=== PATIENT | male | born 1940 | race Caucasian/White ===

== ENCOUNTER 2020-07-05 13:34 | Inpatient (IN) | payer OTHER ==
[~2020-07-05] VITALS: Ht 188 cm; Wt 99.1 kg
[2020-07-05 13:34] VITALS: BP 158/65
[2020-07-05] MEDS ORDERED: BENADRYL25 MG PO (13:36)
[2020-07-05] MEDS ORDERED: PEPCID20 MG PO (13:37)
[2020-07-05] MEDS ORDERED: TERAZOSIN HCL5 MG PO (13:37)
[2020-07-05] MEDS ORDERED: EUTHYROX100 MCG PO (13:37)
[2020-07-05 14:39] LABS: BASOPHILS 1.3 % (0.0-2.0); HEMATOCRIT 27.1 % (42.0-52.0); HEMOGLOBIN 9.8 gm/dL (14.0-18.0); LYMPHOCYTES 3.2 % (24.0-44.0); MCH 30.9 pg (26.0-34.0); MCHC 36.2 g/dL (28.0-37.0); MCV 85.4 fL (80.0-100.0); MONOCYTES 3.1 % (1.0-8.0); PLATELET COUNT 140 thou/uL (150-400); POLYS 92.4 % (36.0-66.0); RBC 3.17 mil/uL (4.50-6.00); RDW 18.2 % (10.5-14.5); WBC 7.5 thou/uL (4.0-11.0)
[2020-07-05 14:47] LABS: CALCIUM 8.1 mg/dL (8.5-10.1); CREATININE 1.1 mg/dL (0.7-1.3); POTASSIUM 3.9 mmol/L (3.5-5.1)
[2020-07-05 14:51] LABS: PLATELET ESTIMATE SLIGHTLY DECREASED
[2020-07-05 14:53] LABS: ALBUMIN 3.1 g/dL (3.4-5.0); TOTAL BILIRUBIN 1.7 mg/dL (0.2-1.0); TOTAL PROTEIN 6.9 g/dL (6.4-8.2)
[2020-07-05 14:58] LABS: LARGE PLATELETS RARE
[2020-07-05 14:59] LABS: ANISOCYTOSIS 1+
[2020-07-05 15:23] LABS: URINE BILIRUBIN NEGATIVE (Negative); URINE BLOOD TRACE (Negative); URINE CLARITY CLEAR; URINE COLOR YELLOW; URINE GLUCOSE-RANDOM* NEGATIVE (Negative); URINE KETONES NEGATIVE (Negative); URINE LEUKOCYTES-REFLEX NEGATIVE (Negative); URINE NITRITE-REFLEX NEGATIVE (Negative); URINE PROTEIN (DIPSTICK) 1+ (Negative); URINE SPECIFIC GRAVITY 1.025 (1.005-1.035)
[2020-07-05 15:41] LABS: BACTERIA-REFLEX 1-9 Few /HPF (None Seen); CASTS None Seen /LPF (None Seen); CRYSTALS None Seen /LPF (None Seen); URINE RBC 0-2 Rare /HPF (0-2); URINE WBC-REFLEX None Seen /HPF (0-5)
[2020-07-05 15:42] LABS: SQUAMOUS None Seen /LPF (0-3)
[2020-07-05 15:48] LABS: BE(vivo) 0.1 mmol/L (-2 to +3); HCO3 21.9 mmol/L (22.0-26.0); PCO2 28.1 mmHg (35.0-45.0); PO2 60.6 mmHg (80.0-100.0); sO2 93.7 % (92.0-98.0)
--- NOTE | 2020-07-05 15:48 | EKG ---
[facility] [place] [address] ELECTROCARDIOGRAM REPORT Name: MIMI BRIDGES Room #: REG [facility]#: [id number] Admission: 07/05/20 Attend Phys: Discharge: Date of : 38 Report #: [id number] THIS REPORT FOR: cc: Shakeel Hopkins MD, Kirk D. 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: no : 1940 Requested By: Lucero Richardson Order Number: [id number] MD: Lai Bassett Measurements Intervals [place] Rate: 102 P: 19 SD: 176 QRS: -38 QRSD: 107 T: 41 QT: 346 QTc: 451 Interpretive Statements Sinus tachycardia Probable left atrial enlargement Left axis deviation Probable anteroseptal infarct, old Baseline wander in lead(s) V1 No previous ECG available for comparison Electronically Signed On 07-05-2020 15:47:55 COMMUNITY OUTREACH ADVOCATE by Lai Bassett [email or web address] <ELECTRONICALLY SIGNED> By: Lai Bassett MD, FACC 07/05/20 1547 [id number] [id number] Lai Bassett MD, FACC /EPI
--- NOTE | 2020-07-05 18:34 | NUR ---
WITH PT'S PERMISSION, ETIQUETTE TEACHER SPOKE DAUGHTER IN-LAW MING BRIDGES, UPDATE ON POC GIVEN. NUMBER- [phone], .
[2020-07-06 05:47] LABS: HEMATOCRIT 25.5 % (42.0-52.0); HEMOGLOBIN 9.2 gm/dL (14.0-18.0); MCH 30.8 pg (26.0-34.0); MCV 85.6 fL (80.0-100.0); RBC 2.98 mil/uL (4.50-6.00); RDW 18.1 % (10.5-14.5); WBC 3.6 thou/uL (4.0-11.0)
[2020-07-06 06:10] LABS: CALCIUM 8.1 mg/dL (8.5-10.1); POTASSIUM 3.8 mmol/L (3.5-5.1)
[2020-07-06 06:44] VITALS: BP 108/69
[2020-07-06 08:52] LABS: ALBUMIN 2.8 g/dL (3.4-5.0); DIRECT BILIRUBIN 0.3 mg/dL (<0.1-0.2); TOTAL BILIRUBIN 0.9 mg/dL (0.2-1.0); TOTAL PROTEIN 6.5 g/dL (6.4-8.2)
[2020-07-06 09:17] VITALS: BP 125/57; BP 129/60
[2020-07-06 15:06] VITALS: BP 120/53
--- NOTE | 2020-07-06 16:04 | NUR ---
assumed care of pt at 0700. pt aox4 in no acute distress. soa w/ activity. otherwise voicing no complaints. very pleasant. up w/ sba. convalescent plasma transfused per. vitals normal. maintains spo2 on 3L NC. calls out appropriately. wcn.
[2020-07-06 21:22] VITALS: BP 121/60
[2020-07-07 04:13] VITALS: BP 115/43
[2020-07-07 06:02] LABS: ABSOLUTE NEUTROPHILS 8.5 thou/uL (1.4-8.2); BASOPHILS 0.3 % (0.0-2.0); HEMATOCRIT 24.8 % (42.0-52.0); HEMOGLOBIN 8.7 gm/dL (14.0-18.0); MCH 30.4 pg (26.0-34.0); MCHC 35.1 g/dL (28.0-37.0); MCV 86.4 fL (80.0-100.0); MONOCYTES 3.1 % (1.0-8.0); PLATELET COUNT 147 thou/uL (150-400); POLYS 95.6 % (36.0-66.0); RBC 2.87 mil/uL (4.50-6.00); RDW 17.4 % (10.5-14.5); WBC 8.8 thou/uL (4.0-11.0)
[2020-07-07 06:08] LABS: FIBRINOGEN 380.4 mg/dL (210-360); INR 1.1; PROTIME 11.3 Seconds (9.3-11.4)
--- NOTE | 2020-07-07 06:32 | NUR ---
POC WITH IVF/IVPB INFUSING. O2 AT 3L. PT WOKE UP IN A PANIC, FEARING HE COULD NOT BREATH. REINSERTED NC AND HAD PT TAKE DEEP BREATHS. 02 BACK UP INTO 90'S. PT USES CALL LIGHT APPROPRIATELY. PT UP WITH X1 ASSIST, AND OVERNIGHT USES URINAL.
[2020-07-07 06:52] LABS: ALBUMIN 2.6 g/dL (3.4-5.0); CREATININE 0.9 mg/dL (0.7-1.3); DIRECT BILIRUBIN 0.3 mg/dL (<0.1-0.2); PHOSPHORUS 2.6 mg/dL (2.5-4.9); POTASSIUM 3.8 mmol/L (3.5-5.1); TOTAL BILIRUBIN 0.8 mg/dL (0.2-1.0); TOTAL PROTEIN 6.1 g/dL (6.4-8.2)
[2020-07-07 07:41] VITALS: BP 219/62
[2020-07-07 07:53] VITALS: BP 117/53
[2020-07-07 11:43] VITALS: BP 124/54
--- NOTE | 2020-07-07 15:50 | NUR ---
PT CARE ASSUMED AT 0700, PT ALERT AND ORIENTED X4, FORGETFUL AND CONFUSED AT TIMES. PT DENIES ANY PAIN NAUSEA AND VOMITTING. PT IS ON BIPAP AND SEEMS AGITATED AT TIMES. CURRENTLY ON PRECEDEX 0.7MCG/HG/HR. PT HAS A BILATERAL WRIST SOFT RESTRAINTS DUE TO PULLING HER BUENO CATHETER OUT AND HER BIPAP. ASSESSMENT DONE PER PROTOCOL. NEW BUENO CARTHETER PLACE, PATENT AND SECURED. PT DAUGHTER IN LAW CALLED AND WAS UPDATED ABOUT PT CARE. FALL PRECAUTIONS IN PLACE. WILL CONTINUE TO MONITOR.
[2020-07-07 16:02] VITALS: BP 135/62
--- NOTE | 2020-07-07 16:11 | NUR ---
INITIAL ASSESSMENT: ARTIS reviewed chart and spoke with nursing and attending physician. Pt remains in Enhanced Isolation due to COVID-19. Pt is afebrile and on 3L of O2. Pt is on IV abx, IV steroids and completing course of Remdesivir. ARTIS placed call to pt's room multiple times. No answer. Per chart, pt is alert/orientated x 4. Pt lives at home alone. 2 steps to enter and 2 steps inside. Prior to admission, pt was independent with ADLs and does not use any DME. Therapy has been ordered and is working with pt for recommendations for discharge needs. ARTIS will continue to reach pt via phone. ARTIS is following to assist as needed with discharge planning.
--- NOTE | 2020-07-07 18:39 | NUR ---
ASSUMED CARE OF PT AT 0700. PT AOX4 MOD RESP DISTRESS. INCREASED O2 NEEDS THROUGHOUT THE DAY. VERY ANXIOUS. NOT TOLERATING BIPAP. PULM AWARE. NOW ON OPTIFLO. PENDING TRANSFER TO ICU. MAINTAINING SPO2 ON 50L/55% AT THIS TIME. WCM.
--- NOTE | 2020-07-07 20:26 | NUR ---
CONSULTED TO PLACE A PICC FOR A PATIENT TRANSFERING TO ICU. ORDER AND CONSENT NOTED. THE PROCEDURE WELL BENIFITS AND RISKS WERE DISCUSSED WITH THE PATIENT AND HE VERBALIZED UNDERSTANDING. HE WAS UNABLE TO LAY FLAT FOR A CENTRAL LINE SO A 5F TRIPLE LUMEN POWER PICC WAS PLACED IN THE RIGHT UPPER ARM. LINE WAS TRIMMED TO 42 CM AND ADVANCED WITHOUT DIFFICULTY. A THE END OF PLACEMENT THE PATIENT BECAME VERY RESTLESS. A STAT CHEST XRAY WAS ORDERED TO VERIFY PLACEMENT
[2020-07-07 20:51] VITALS: BP 209/77
[2020-07-07 20:56] LABS: BE(vivo) -0.8 mmol/L (-2 to +3); HCO3 22.2 mmol/L (22.0-26.0); PCO2 32.3 mmHg (35.0-45.0); PO2 61.8 mmHg (80.0-100.0); pH 7.455 (7.360-7.450)
[2020-07-08] VITALS (36 sets, daily range): BP systolic 92–201; BP diastolic 49–97
--- NOTE | 2020-07-08 02:14 | NUR ---
PT ANXIETY LEVEL VERY HIGH AGAIN AND DESATING. RT INTERVENTIONS RAISED 02 90%. PT TRANSFER ORDER TO ICU AND REPORT GIVEN ICU NURSE.
--- NOTE | 2020-07-08 02:20 | NUR ---
79 Y/O PT OF DR NEVES ADMITTED TO ICU FROM [facility] WITH INCREASING OXYGEN NEEDS ON 100 % OPTIFLOW/. COVID POSITIVE O2 SAT 90 % AWAKE AND ALERT NEURO INTACT. PT EXTREMELY ANXIOUS ABND NERVOUS. ASKED IF HE WANTED TO BE PLACED ON THE VENT IF NEEDED AND HE STATES YES. WILL CONT TO MONITOR.
--- NOTE | 2020-07-08 05:00 | NUR ---
PT VERY AGITATED AND HAVING DYSPNEA. HALDOL 1 MG IV GIVEN PER ORDER WIRELINE FIELD OPERATOR PT IS VOIDING IN SMALL AMTS. #16 FR BUENO PLACED.CLEAR JABARI URINE OBTAINED.
--- NOTE | 2020-07-08 06:30 | NUR ---
PT VERY RESTLESS AND AGITATED AGAIN O2 SAT 86 % PRECEDEX GTT STARTED PER ORDER DR HAJI. WILL CONT TO MONITOR.
[2020-07-08 06:36] LABS: ABSOLUTE NEUTROPHILS 10.1 thou/uL (1.4-8.2); BASOPHILS 0.3 % (0.0-2.0); HEMATOCRIT 33.2 % (42.0-52.0); LYMPHOCYTES 1.7 % (24.0-44.0); MCH 30.3 pg (26.0-34.0); MCHC 35.4 g/dL (28.0-37.0); MCV 85.8 fL (80.0-100.0); MONOCYTES 2.6 % (1.0-8.0); PLATELET COUNT 193 thou/uL (150-400); POLYS 95.4 % (36.0-66.0); RBC 3.87 mil/uL (4.50-6.00); RDW 18.2 % (10.5-14.5); WBC 10.5 thou/uL (4.0-11.0)
[2020-07-08 06:37] LABS: HEMOGLOBIN 11.8 gm/dL (14.0-18.0)
[2020-07-08 06:59] LABS: ALBUMIN 2.8 g/dL (3.4-5.0); DIRECT BILIRUBIN 0.3 mg/dL (<0.1-0.2); FIBRINOGEN 372.7 mg/dL (210-360); INR 1.2; PROTIME 12.1 Seconds (9.3-11.4); TOTAL BILIRUBIN 1.1 mg/dL (0.2-1.0); TOTAL PROTEIN 6.4 g/dL (6.4-8.2)
--- NOTE | 2020-07-08 07:00 | NUR ---
PT IS RESTING QUIETLY NOW. PRECEDEX AT 0.5 MCG O2 SAT 95 % WILL CONT TO MONITOR
--- NOTE | 2020-07-08 07:18 | NUR ---
PATIENT WITH INCREASING RESPIRATORY NEEDS, TRANSFER FROM 3W TO ICU. PATIENT PLACED ON HOLD FOR O.T. WILL NEED NEW ORDERS WHEN APPROPRIATE FOR THERAPY.
--- NOTE | 2020-07-08 08:04 | NUR ---
Pt TRANSFERRED TO ICU. WILL PLACE ON HOLD AND AWAIT NEW ORDERS TO RESUME WHEN APPROPRIATE
--- NOTE | 2020-07-08 08:10 | NUR ---
Assummed care on patient from night nurse. Patient desasts into the lower 80's with pulling up in bed and anxious. Resp rate in the 40's, monitor ST.
[2020-07-08 08:23] LABS: ALBUMIN 2.8 g/dL (3.4-5.0); CALCIUM 7.8 mg/dL (8.5-10.1); CREATININE 0.8 mg/dL (0.7-1.3); POTASSIUM 3.3 mmol/L (3.5-5.1); TOTAL BILIRUBIN 1.1 mg/dL (0.2-1.0); TOTAL PROTEIN 6.6 g/dL (6.4-8.2)
[2020-07-08 10:27] LABS: BE(vivo) -2.7 mmol/L (-2 to +3); HCO3 21.4 mmol/L (22.0-26.0); pH 7.404 (7.360-7.450)
[2020-07-08 10:28] LABS: PO2 51.5 mmHg (80.0-100.0)
--- NOTE | 2020-07-08 10:30 | NUR ---
PATIENT IS ANXIOUS AND DESATING INTO THE 70'S WHEN ACCIDENTLY DISLODGING OPTIFLOW DEVICE FROM ONE OF HIS NOSTRILS. DR. HAJI NOTIFIED. ALSO INFORMED OF HIS LABS. ORDERS RECEIVED
--- NOTE | 2020-07-08 12:00 | NUR ---
PATIENT GIVEN LASIX PER ORDER. SPOKE WITH FAMILY MEMBERS SON AND DAUGHTER VIA PHONE. PATIENT INTUBATED AT [address] HAJI AT BEDSIDE, SEDATION GIVEN PER PROTOCOL FOR INTUBATION. PROPOFOL DRIP STARTED AND TITRATED FOR SEDATION. OG TUBE INSERTED AND STAT PCLR DONE PER ORDER.
--- NOTE | 2020-07-08 12:02 | NUR ---
If pt requires intubation, start enteral nutrition within 48 hr. Rec vital AF 1.2 to start 30ml/hr. will follow up saturday.
[2020-07-08 13:42] LABS: CALCIUM 7.2 mg/dL (8.5-10.1); CREATININE 0.9 mg/dL (0.7-1.3); POTASSIUM 3.3 mmol/L (3.5-5.1)
--- NOTE | 2020-07-08 13:42 | NUR ---
chart review, unable to visit with caleb rt chloeid +, conserve on ppe. cm spoke with office ahsu morin via phone call. ashu had question if she would be able to talk with him"?ashu. cm education on face time with caleb, if ask nurse to do so while in room with caleb. "thank you for the call, not being able to visit with mayelin"/officer mikel. will cont following as needed for dc needs.
[2020-07-08 14:01] LABS: HCO3 23.7 mmol/L (22.0-26.0); PCO2 44.6 mmHg (35.0-45.0); PO2 164.6 mmHg (80.0-100.0); pH 7.343 (7.360-7.450)
[2020-07-09] VITALS (31 sets, daily range): BP systolic 109–142; BP diastolic 54–72
--- NOTE | 2020-07-09 04:31 | NUR ---
PT REMAINS SEDATED WITH PRECEDEX AND PROPOFOL DRIPS FOR VENT MANAGEMENT. BILATERAL WRIST RESTRAINTS REMAIN IN PLACE PT ATTEMPTS TO MOVE HIS ARMS TOWARD HIS ETT WHEN HE COUGHS OR IS SUCTIONED. VSS. AFEBRILE. TOLERATING VENT WELL. FIO2 TITRATED DOWN TO 60%. GOOD URINE OUTPUT FROM BUENO. COMPLETE BED BATH GIVEN DURING THE NIGHT. PROGRESSING SLOWLY TOWARD POC GOALS. WILL CONTINUE TO MONITOR AND GIVE REPORT TO ONCOMING NURSE.
[2020-07-09 04:33] LABS: BE(vivo) 1.1 mmol/L (-2 to +3); PCO2 48.6 mmHg (35.0-45.0); PO2 90.3 mmHg (80.0-100.0); pH 7.362 (7.360-7.450); sO2 96.6 % (92.0-98.0)
[2020-07-09 05:06] LABS: HEMATOCRIT 25.8 % (42.0-52.0); MCH 29.9 pg (26.0-34.0); MCHC 34.2 g/dL (28.0-37.0); MCV 87.4 fL (80.0-100.0); RBC 2.95 mil/uL (4.50-6.00); RDW 18.3 % (10.5-14.5); WBC 5.3 thou/uL (4.0-11.0)
[2020-07-09 05:09] LABS: HEMOGLOBIN 8.8 gm/dL (14.0-18.0)
[2020-07-09 05:20] LABS: ALBUMIN 2.3 g/dL (3.4-5.0); CALCIUM 7.1 mg/dL (8.5-10.1); CREATININE 0.9 mg/dL (0.7-1.3); DIRECT BILIRUBIN 0.5 mg/dL (<0.1-0.2); PHOSPHORUS 3.8 mg/dL (2.5-4.9); TOTAL BILIRUBIN 0.9 mg/dL (0.2-1.0); TOTAL PROTEIN 5.5 g/dL (6.4-8.2)
--- NOTE | 2020-07-09 07:22 | NUR ---
SPOKE WITH PT'S [id number]. UPDATED PROVIDED AND QUESTIONS ANSWERED.
--- NOTE | 2020-07-09 08:00 | NUR ---
ASSUMMED CARE FROM THE NIGHT NURSE, RAOUL AT 0700. PATIENT IS RESTING QUIETLY, SEDATED ON VENT.
--- NOTE | 2020-07-09 10:30 | NUR ---
SPOKE WITH PATIENT'S DAUGHTER, PREM AND UPDATED HER TO THE PATIENT'S STATUS. WILL ARRANGE FOR A CALL AT NOON ON PATIENT'S OWN PHONE.
--- NOTE | 2020-07-09 12:55 | NUR ---
DR NEVES AND DR HAJI IN. NUTRITION DISCUSSED.
--- NOTE | 2020-07-09 17:03 | NUR ---
SPOKE WITH DAUGHTER PREM AT 1640 AND UPDATED HER TO THE PATIENT STATUS.
--- NOTE | 2020-07-09 19:17 | NUR ---
Patient is stable, sedation continues for vent management.
[2020-07-10] VITALS (25 sets, daily range): BP systolic 112–156; BP diastolic 46–69
--- NOTE | 2020-07-10 04:24 | NUR ---
PT REMAINS ON THE VENT. COVID POSITIVE. ON SEDATION. OXYGEN SATURATION IS MAINTAINING AT 99-100 PERCENT ON THE VENT. TEMPERATURE WAS COOL SO WARMING BLANKET USED AND NOW WARM SO TAKEN OFF. LUNGS ARE DIMINISHED. SUCTIONED MINIMAL CLEAR FLUIDS NOTED. SCDS ON BILAERATL. VITAL ARE STABLE. TURN Q [address] NO ISSUES OR CONCERNS NOTED AT THIS TIME. WILL CONTINUE TO MONITOR AND ASSESS PER NURSINTG
[2020-07-10 05:30] LABS: HEMATOCRIT 26.6 % (42.0-52.0); MCH 30.1 pg (26.0-34.0); MCHC 33.9 g/dL (28.0-37.0); MCV 88.9 fL (80.0-100.0); RBC 2.99 mil/uL (4.50-6.00); WBC 5.9 thou/uL (4.0-11.0)
[2020-07-10 05:55] LABS: CALCIUM 7.7 mg/dL (8.5-10.1); CREATININE 0.9 mg/dL (0.7-1.3); POTASSIUM 4.6 mmol/L (3.5-5.1)
[2020-07-10 05:57] LABS: ALBUMIN 2.4 g/dL (3.4-5.0); DIRECT BILIRUBIN 0.4 mg/dL (<0.1-0.2); TOTAL BILIRUBIN 0.9 mg/dL (0.2-1.0); TOTAL PROTEIN 5.7 g/dL (6.4-8.2)
--- NOTE | 2020-07-10 10:33 | NUR ---
ASSUMMED CARE AT 0700 FROM THE NIGHT NURSE TERRENCE. PATIENT IS SEDATED WITH PROPOFOL AND PRECEDEX. FI02 DECREASED TO 40%. WILL CONTINUE TO MONITOR
--- NOTE | 2020-07-10 11:30 | NUR ---
SPOKE WITH PATIENT'S SON REGINA, UPDATED HIM ON THE PATIENT'S CONDITION.
--- NOTE | 2020-07-10 17:30 | NUR ---
SPOKE WITH PREM, AND UPDATED HER ON HER FATHER'S CONDITION.
--- NOTE | 2020-07-10 19:00 | NUR ---
PATIENT IS SLOWLY PROGRESSING TOWARDS OUTCOME GOALS HE IS TOLERATING HIW TUBE FEEDING. REMAINS SEDATED ON VENT WITH SAT'S IN THE UPPER 90'S.
[2020-07-11] VITALS (25 sets, daily range): BP systolic 97–137; BP diastolic 47–70
[2020-07-11 05:27] LABS: HEMATOCRIT 26.1 % (42.0-52.0); MCHC 34.4 g/dL (28.0-37.0); MCV 87.1 fL (80.0-100.0); RBC 2.99 mil/uL (4.50-6.00); RDW 18.1 % (10.5-14.5)
[2020-07-11 05:39] LABS: ALBUMIN 2.4 g/dL (3.4-5.0); CALCIUM 8.1 mg/dL (8.5-10.1); CREATININE 0.8 mg/dL (0.7-1.3); POTASSIUM 4.4 mmol/L (3.5-5.1); TOTAL BILIRUBIN 0.9 mg/dL (0.2-1.0); TOTAL PROTEIN 5.4 g/dL (6.4-8.2)
--- NOTE | 2020-07-11 07:27 | NUR ---
ON PRECEDEX AND PROPOFOL GTT.TOLERATING TUBE FEEDING.MONITOR SHOWS SR.POC CONTINUED.
[2020-07-11 09:14] LABS: BE(vivo) 5.4 mmol/L (-2 to +3); HCO3 31.9 mmol/L (22.0-26.0); PCO2 57.4 mmHg (35.0-45.0); PO2 95.9 mmHg (80.0-100.0); pH 7.363 (7.360-7.450); sO2 96.9 % (92.0-98.0)
--- NOTE | 2020-07-11 15:43 | NUR ---
ON THE VENT AND LIGHTLY SEDATED, GETS RESTLESS WITH SEDATION VACATION. VITALS STABLE. TUBEFEEDING PER OGT CHANGED PER DIETITIAN RECOMMENDATION AND PATIENT TOLERATING WELL. DAUGHTER CALLED RN AND UPDATED, DR. NEVES ROUNDED AND STATED HE WOULD CALL SON WITH ANY FURTHER UPDATES. WILL CONTINUE TO MONITOR CLOSELY.
--- NOTE | 2020-07-11 20:38 | NUR ---
2034- NURSE CALLED PATIENTS MARICARMEN RAMIREZ, [place], WHO PROVIDED PATIENTS SECURITY CODE. NURSE UPDATED HER ON PATIENTS CURRENT STATUS AND PLAN OF CARE. SHE EXPRESSED GRATITUDE AND THE CALL WAS ENDED.
--- NOTE | 2020-07-11 20:45 | NUR ---
2044- Nurse talked to MOISES Robb, and his was on the phone with him, and updated them on patient status and plan of care. Their questions were answered. Patients son expressed that Aaliyah is not on patients [facility] paperwork and would like her name removed from list. He expressed he wants his Millie to be added to the call list. Nurse will assess this and update this when paperwork obtained.
[2020-07-12] VITALS (24 sets, daily range): BP systolic 106–163; BP diastolic 47–103
[2020-07-12 05:31] LABS: HEMATOCRIT 27.9 % (42.0-52.0); HEMOGLOBIN 9.5 gm/dL (14.0-18.0); MCH 30.1 pg (26.0-34.0); MCHC 34.1 g/dL (28.0-37.0); MCV 88.2 fL (80.0-100.0); RBC 3.17 mil/uL (4.50-6.00); RDW 18.3 % (10.5-14.5); WBC 8.4 thou/uL (4.0-11.0)
[2020-07-12 05:46] LABS: CALCIUM 8.1 mg/dL (8.5-10.1); CREATININE 0.7 mg/dL (0.7-1.3)
[2020-07-12 05:50] LABS: ALBUMIN 2.3 g/dL (3.4-5.0); DIRECT BILIRUBIN 0.3 mg/dL (<0.1-0.2); TOTAL BILIRUBIN 0.8 mg/dL (0.2-1.0); TOTAL PROTEIN 5.4 g/dL (6.4-8.2)
--- NOTE | 2020-07-12 07:42 | NUR ---
Patient not progressing towards plan of care as evidenced by continued need for ventilator, becomes tachypneic with lightened sedation, strong gag and cough. Plan of care is to continue to assess patient q2-4 hours, vital signs q1 hour, discuss with physician weaning trials, decrease sedation as able, increase tube feeding as able.
--- NOTE | 2020-07-12 11:41 | NUR ---
SON CALLING TO GET AN UPDATE ON PATIENT. UPDATE GIVEN, SON ASKING AVOUT OBTAINING KEYS FROM FATHER. RN EXPLAINING UNLESS THERES DOCCUMENTED DPOA PAPER WORK KEYS WILL NOT BE ABLE TO BE RELEASED. SON EXPRESSING UNDERSTANDING.
--- NOTE | 2020-07-12 17:19 | NUR ---
chart review. caleb cont to require vent, and nutritional support. COVID +. cm left message for [place]. will cont following as needed for dc needs.
[2020-07-13] VITALS (24 sets, daily range): BP systolic 91–162; BP diastolic 42–70
[2020-07-13 04:29] LABS: BE(vivo) 7.1 mmol/L (-2 to +3); HCO3 34.2 mmol/L (22.0-26.0); PCO2 64.3 mmHg (35.0-45.0); PO2 92.6 mmHg (80.0-100.0); pH 7.344 (7.360-7.450); sO2 96.4 % (92.0-98.0)
--- NOTE | 2020-07-13 04:51 | NUR ---
Patient not progressing towards plan of care, however is stable at this time. His ABG showed elevated CO2, however stable. Patient remains on 40% FIO2. Bowel sounds hypoactive, no bowel movement noted, residuals are low and patient appears to be tolerating tube feeding. Plan of care is to continue to monitor patient vital signs q1hour, assessments q2-4 hours, oral care q2 hours, and provide customized care for his needs.
[2020-07-13 05:26] LABS: ALBUMIN 2.1 g/dL (3.4-5.0); CALCIUM 8.1 mg/dL (8.5-10.1); CREATININE 0.6 mg/dL (0.7-1.3); DIRECT BILIRUBIN 0.3 mg/dL (<0.1-0.2); PHOSPHORUS 3.5 mg/dL (2.5-4.9); POTASSIUM 4.8 mmol/L (3.5-5.1); TOTAL BILIRUBIN 0.6 mg/dL (0.2-1.0); TOTAL PROTEIN 5.4 g/dL (6.4-8.2)
--- NOTE | 2020-07-13 06:48 | NUR ---
0648- Preeti, patients daughter, called up here this morning, however nurse was in patient room. Nurse did return her call to update her on patient night, however voicemail picked up. No voicemail was left as nurse is unsure if permission to do so was granted.
--- NOTE | 2020-07-13 07:34 | NUR ---
[address] RETURNED CALL TO NURSE. HER QUESTIONS WERE ANSWERED AND SHE WAS UPDATED ON PATIENTS STATUS AND PLAN OF CARE. SHE ASKED IF SHE COULD HAND PATCHER PATIENTS KEYS AND HIS PHONE BECAUSE THE PATIENT HAS BUISNESS AND MAIL THAT NEEDS ATTENDING TO. NURSE EXPRESSED SHE WOULD ASK IF THIS WAS POSSIBLE AND SEE IF KEYS WERE IN PATIENTS ROOM, THEN HAVE ONCOMING NURSE CALL HER BACK. THIS WAS INFORMED TO THE ONCOMING RN FOR CONTINUATION OF CARE.
--- NOTE | 2020-07-13 19:56 | NUR ---
PATIENT CONTINUES ON VENTILATOR A/C 40% PROPOFOL AND PRECEDEX FOR VENTILATOR MANAGEMENT. NO CPAP TRIALING.
[2020-07-14] VITALS (26 sets, daily range): BP systolic 102–167; BP diastolic 47–71
[2020-07-14 06:04] LABS: ALBUMIN 2.1 g/dL (3.4-5.0); CALCIUM 8.1 mg/dL (8.5-10.1); CREATININE 0.7 mg/dL (0.7-1.3); POTASSIUM 4.5 mmol/L (3.5-5.1); TOTAL PROTEIN 5.4 g/dL (6.4-8.2)
--- NOTE | 2020-07-14 06:23 | NUR ---
PT MAINTAINED ON VENTILATOR OVERNIGHT. VITALS STABLE. SEDATED. RESPONDS TO PAINFUL STIMULI. NO EVENTS OVERNIGHT. VENT AT AC 40%. O2 SATs > 95 THROUGHOUT THE NIGHT. WILL CONTINUE WITH POC.
--- NOTE | 2020-07-14 19:12 | NUR ---
PATIENT DOES NOT PROGRESS TOWARDS DISMISSAL GOALS. CPAP TRIAL ATTEMPTED TODAY. PATIENT DID NOT TOLERATE. INCREASED HR AND RR. PATIENT CONTINUES ON A/C 40% VENTILATOR. PROPOFL AND PRECEDEX CONTINUE. PATIENT KEYS, PHONE AND BANKING SERVICES OFFICER WERE SENT WITH DAUGHTER PREM.
[2020-07-15] VITALS (20 sets, daily range): BP systolic 108–152; BP diastolic 45–65
[2020-07-15 03:38] LABS: BE(vivo) 9.1 mmol/L (-2 to +3); HCO3 34.5 mmol/L (22.0-26.0); PCO2 51.9 mmHg (35.0-45.0); PO2 86.9 mmHg (80.0-100.0); sO2 96.7 % (92.0-98.0)
[2020-07-15 05:36] LABS: HEMOGLOBIN 8.6 gm/dL (14.0-18.0); RDW 18.5 % (10.5-14.5)
[2020-07-15 05:38] LABS: HEMATOCRIT 24.9 % (42.0-52.0); MCH 29.9 pg (26.0-34.0); MCHC 34.4 g/dL (28.0-37.0); MCV 86.8 fL (80.0-100.0); PLATELET COUNT 91 thou/uL (150-400); RBC 2.87 mil/uL (4.50-6.00); WBC 7.1 thou/uL (4.0-11.0)
[2020-07-15 06:10] LABS: ALBUMIN 2.1 g/dL (3.4-5.0); CALCIUM 7.9 mg/dL (8.5-10.1); CREATININE 0.6 mg/dL (0.7-1.3); POTASSIUM 4.3 mmol/L (3.5-5.1); TOTAL BILIRUBIN 0.8 mg/dL (0.2-1.0); TOTAL PROTEIN 5.3 g/dL (6.4-8.2)
[2020-07-15 06:20] LABS: DIRECT BILIRUBIN 0.4 mg/dL (<0.1-0.2); PHOSPHORUS 3.3 mg/dL (2.5-4.9)
--- NOTE | 2020-07-15 06:50 | NUR ---
PATIENT HAD A GOOD NIGHT LAST NIGHT. PATIENT'S VSS. PATIENT TURNED Q2H AND SLEPT WELL LAST NIGHT. PATIENT GIVEN A BATH THIS MORNING. NO S/S OF DISTRESS NOTED.
[2020-07-15 10:05] LABS: ABSOLUTE NEUTROPHILS 6.1 thou/uL (1.4-8.2); ANISOCYTOSIS 1+; METAMYELOCYTES 2 %; MYELOCYTES 1 %; NUCLEATED RBCS 1 /100WBC
[2020-07-15 10:06] LABS: LARGE PLATELETS OCCASIONAL; POIKILOCYTOSIS SLIGHT; POLYCHROMASIA SLIGHT
[2020-07-15 10:46] LABS: ABSOLUTE RETIC COUNT 0.1596 10^6/uL; OBSERVED RETIC COUNT 5.64 % (0.6-2.6)
[2020-07-15 11:07] LABS: APTT 29.1 Seconds (24.5-32.8); D-DIMER 0.68 ug/mLFEU (0.19-0.50); INR 1.1; PROTIME 11.1 Seconds (9.3-11.4)
--- NOTE | 2020-07-15 14:48 | NUR ---
chart review. remains on vent, nutritional support. covid +. cm visit with ashu his daughter via phone call [phone], no needs voiced. will cont following as needed for dc needs.
[2020-07-15 15:39] LABS: BE(vivo) 11.7 mmol/L (-2 to +3); HCO3 37.6 mmol/L (22.0-26.0); PCO2 57.7 mmHg (35.0-45.0); PO2 86.3 mmHg (80.0-100.0); pH 7.432 (7.360-7.450); sO2 96.6 % (92.0-98.0)
[2020-07-16] VITALS (23 sets, daily range): BP systolic 114–179; BP diastolic 53–92
--- NOTE | 2020-07-16 03:31 | NUR ---
ASSESSMENTS CHARTED, MEDS CHARTED GIVEN. PATIENT ON VENTILATOR, SEDATED. ON PROPOFOL AND PRESEDEX DURING SHIFT. BATH GIVEN. PLAN OF CARE TO TRY CPAP TRIAL AGAIN TODAY. FALL PRECAUTIONS IN PLACE.
--- NOTE | 2020-07-16 13:48 | NUR ---
TRIED WEANING THE PATIENT ON 01/28 AT 1250 THIS AFTERNOON. HE DIDN'T NOT MAKE IT TO THE 5 MINUTE JEAN, HE LASTED 1 MIN 45 SECONDS AND HIS RR INCREASED INTO THE LOW 40'S. THE TRIAL WAS ENDED AND PATIENT WAS PLACED BACK ON HIS PREVIOUS VENT SETTINGS.
[2020-07-17] VITALS (27 sets, daily range): BP systolic 70–145; BP diastolic 41–71
[2020-07-17 04:19] LABS: BE(vivo) 11.7 mmol/L (-2 to +3); HCO3 38.2 mmol/L (22.0-26.0); PO2 83.6 mmHg (80.0-100.0); pH 7.429 (7.360-7.450); sO2 96.2 % (92.0-98.0)
[2020-07-17 05:32] LABS: WBC 13.1 thou/uL (4.0-11.0)
[2020-07-17 05:35] LABS: ABSOLUTE NEUTROPHILS 11.4 thou/uL (1.4-8.2); BASOPHILS 0.7 % (0.0-2.0); EOSINOPHILS 2.8 % (0.0-3.0); HEMOGLOBIN 9.8 gm/dL (14.0-18.0); LYMPHOCYTES 5.1 % (24.0-44.0); MCHC 34.9 g/dL (28.0-37.0); MCV 85.9 fL (80.0-100.0); MONOCYTES 4.5 % (1.0-8.0); PLATELET COUNT 102 thou/uL (150-400); POLYS 86.9 % (36.0-66.0); RBC 3.26 mil/uL (4.50-6.00); RDW 19.8 % (10.5-14.5)
[2020-07-17 05:57] LABS: ALBUMIN 2.4 g/dL (3.4-5.0); CALCIUM 8.6 mg/dL (8.5-10.1); CREATININE 0.8 mg/dL (0.7-1.3); POTASSIUM 4.6 mmol/L (3.5-5.1); TOTAL BILIRUBIN 1.1 mg/dL (0.2-1.0); TOTAL PROTEIN 5.9 g/dL (6.4-8.2)
--- NOTE | 2020-07-17 07:14 | NUR ---
ASSESSMENTS CHARTED, MEDS CHARTED GIVEN. ON PRECEDEX AND PROPOFOL DURING SHIFT. VENT SETTINGS WERE NOT CHANGED DURING SHIFT. PATIENT IN RESTRAINTS DURING SHIFT. PATIENT PUTTING OUT COPIOUS SUCRETIONS, NEEDING FREQUENT SUCTIONING. HAD EPISODE OF AGONAL BREATHING, DIAPHORETIC. FILTER CHANGED IN VENTILATOR,SUCTIONED AND REPOSITIONED AND PATIENT RECOVERED. FALL PRECAUTIONS IN PLACE DURING SHIFT. NO APPARENT PAIN
[2020-07-17 12:38] LABS: ANISOCYTOSIS 2+
[2020-07-17 12:40] LABS: POLYCHROMASIA SLIGHT
[2020-07-17 12:41] LABS: MICROCYTES 2+
[2020-07-18] VITALS (29 sets, daily range): BP systolic 82–141; BP diastolic 41–70
--- NOTE | 2020-07-18 03:30 | NUR ---
ASSUMED CARE OF PATIENT AT 1900. VSS, NO S/S OF DISTRESS. PROPOFOL AND PRECEDEX INFUSING CHARTED. VENT SETTING REMAIN THE SAME. BATH GIVEN, TURNED Q2. WORKING TOWARDS POC GOALS.
[2020-07-18 03:49] LABS: HEMATOCRIT 32.5 % (42.0-52.0); HEMOGLOBIN 11.2 gm/dL (14.0-18.0); MCH 29.5 pg (26.0-34.0); MCHC 34.4 g/dL (28.0-37.0); MCV 85.7 fL (80.0-100.0); PLATELET COUNT 127 thou/uL (150-400); RBC 3.79 mil/uL (4.50-6.00); RDW 20.1 % (10.5-14.5); WBC 22.4 thou/uL (4.0-11.0)
[2020-07-18 04:03] LABS: ALBUMIN 2.6 g/dL (3.4-5.0); CALCIUM 8.6 mg/dL (8.5-10.1); CREATININE 0.7 mg/dL (0.7-1.3); POTASSIUM 4.4 mmol/L (3.5-5.1); TOTAL BILIRUBIN 1.3 mg/dL (0.2-1.0); TOTAL PROTEIN 6.2 g/dL (6.4-8.2)
[2020-07-18 05:13] LABS: ABSOLUTE NEUTROPHILS 19.3 thou/uL (1.4-8.2); METAMYELOCYTES 2 %; MYELOCYTES 2 %
[2020-07-18 05:14] LABS: ANISOCYTOSIS 2+
[2020-07-18 05:23] LABS: BE(vivo) 14.4 mmol/L (-2 to +3); HCO3 40.5 mmol/L (22.0-26.0); PCO2 57.2 mmHg (35.0-45.0); PO2 107.7 mmHg (80.0-100.0); pH 7.468 (7.360-7.450); sO2 98.1 % (92.0-98.0)
--- NOTE | 2020-07-18 13:08 | NUR ---
chart review. remains on vent, nutritional support. bedside nurse provides updates to pt family. will cont following as needed for dc needs.
[2020-07-19] VITALS (59 sets, daily range): BP systolic 86–169; BP diastolic 48–85
[2020-07-19 03:08] LABS: HEMATOCRIT 28.4 % (42.0-52.0); HEMOGLOBIN 9.7 gm/dL (14.0-18.0); MCH 29.2 pg (26.0-34.0); MCV 85.9 fL (80.0-100.0); RBC 3.3 mil/uL (4.50-6.00); RDW 20.5 % (10.5-14.5); WBC 19.5 thou/uL (4.0-11.0)
[2020-07-19 03:11] LABS: CALCIUM 8.8 mg/dL (8.5-10.1); CREATININE 0.7 mg/dL (0.7-1.3); POTASSIUM 4.5 mmol/L (3.5-5.1)
--- NOTE | 2020-07-19 03:55 | NUR ---
ASSESSMENTS CHARTED, MEDS CHARTED GIVEN. PATIENT SEDATED AND INTUBATED THROUGHOUT SHIFT. SR WITH PAC'S AND PVC'S ON TELEMETRY. ON TUBE FEED, NO RESIDUALS. WATER BOLUS'S WITH BENEPROTEIN Q6. PATIENT IN PROTECTIVE BOOTS DURING SHIFT. TURNED CHARTED. FALL PRECAUTIONS IN PLACE DURING SHIFT.
--- NOTE | 2020-07-19 13:01 | NUR ---
SPOKE W/ SON, MIMI, ON TELEPHONE. UPDATE GIVEN REQUESTED. MIMI VERBALIZES CONCERN ABOUT ADVANCED DIRECTIVE DOCUMENTATION THAT WE MAY HAVE ON FILE. REASSURANCES PROVIDED THAT WE WILL FOLLOW UP ON THAT. EMOTIONAL SUPPORT PROVIDED.
[2020-07-19 15:44] LABS: BE(vivo) 8.9 mmol/L (-2 to +3); HCO3 34.6 mmol/L (22.0-26.0); PCO2 52.9 mmHg (35.0-45.0); PO2 99.7 mmHg (80.0-100.0); pH 7.434 (7.360-7.450); sO2 97.6 % (92.0-98.0)
--- NOTE | 2020-07-19 18:05 | NUR ---
@ APPX 9900, PT'S SON, REGINA, CONTACTED AND PROVIDED W/ UPDATE ON PT CONDITION S/P EXTUBATION. FACETIME WITH PT PROVIDED FOR BOTH REGINA AND PREM, PT'S GROWN CHILDREN. REASSURANCES AND EMOTIONAL SUPPORT PROVIDED.
--- NOTE | 2020-07-19 18:40 | NUR ---
PT EXTUBATED TODAY TO FACE TENT. PT DROWSY BUT APPROPRIATELY RESPONSIVE TO QUESTIONS AND VERBALIZES THAT HE WANTS TO GO HOME. PT/OT/ST CONSULTED. PT'S SON, REGINA, AND DAUGHTER, PREM WOULD LIKE TO FACETIME ONCE A DAY WITH THEIR DAD WHILE HE IS IN ISOLATION. PROGRESSING TOWARD GOALS.
[2020-07-20 01:01] VITALS: BP 171/79
[2020-07-20 01:59] VITALS: BP 153/79
--- NOTE | 2020-07-20 03:37 | NUR ---
ASSESSMENTS CHARTED, MEDS CHARTED GIVEN. PATIENT HAD RECENTLY BEEN EXTUBATED AND SATING WELL ON FACE SHIELD. CHANGED TO NC AT 4 LITERS. PATIENT ALERT TO SELF AND SITUATION, SOME CONFUSION AND VISUAL HALLUCINATIONS (SPIDERS AND DOGS IN THE ROOM).SINUS RHYTHM WITH PVC'S AND ONE RUN OF VTACH. PATIENT NPO FOR SPEECH EVALUATION. OT AND PT ARE ALSO CONSULTED. PATIENT CONTINUES TO HAVE A LOW GRADE FEVER. PATIENT GLAD HE IS NO LONGER INTUBATED. DENIES PAIN. FALL PRECAUTIONS IN PLACE. REPORT WAS GIVEN TO 3W NURSE, PATIENT WAS TRANSFERED TO A 3W BED AND SENT UPSTAIRS WITH HIS NEW NURSE.
--- NOTE | 2020-07-20 03:57 | NUR ---
TELEPHONE REPORT FROM VANESSA IN ICU AT 0255; PT TRANSFERRED BY BED AT 0320. 4L O2, ON TELE, DROWSY BUT TALKING. BUENO IN PLACE DRAINING DARK URINE. WILL CONTINUE TO MONITOR
[2020-07-20 04:34] VITALS: BP 147/79
[2020-07-20 06:31] LABS: CALCIUM 8.8 mg/dL (8.5-10.1); CREATININE 0.7 mg/dL (0.7-1.3); POTASSIUM 3.6 mmol/L (3.5-5.1)
[2020-07-20 07:52] VITALS: BP 161/76
[2020-07-20 12:00] VITALS: BP 157/71
--- NOTE | 2020-07-20 13:46 | NUR ---
ARTIS reviewed chart and spoke with nursing and attending physician. Pt was transferred to from ICU after being successfully extubated yesterday. Pt remains in Enhanced Isolation due to COVID-19. Pt is s/p convalescent plasma infusion and course of Remdesivir. Pt is afebrile and on 4L of O2 via NC. Pt is on IV abx and IV steroids. PT/OT/ST ordered to evaluate pt. ARTIS discussed case with frozen foods manager for possible admission to when out of isolation and medically stable. N consult to be ordered. ARTIS placed call to pt's room. No answer. ARTIS spoke with pt's dtr, Preeti, via phone. Introduced role of ARTIS. Pt normally lives at home alone. Prior to admission, pt was independent with ADLs. No hx of HH services or post-acute placement. Pt's dtr states that he did outpatient therapy after a knee surgery. Pt's PCP was Dr. Shakeel Hopkins, who recently . Pt's dtr is agreeable with post-acute placement or home with HH. ARTIS explained that referrals will be sent to in-network providers. Pt's dtr thought pt had traditional Medicare. ARTIS explained that pt has a Medicare replacement policy through [facility]. No weekend discharge anticipated at this time. Will need insurance authorization for acute rehab if pt is a candidate. Pt's dtr provided with contact info for . Pt's family was able to Face Time with pt last evening prior to transferring to . ARTIS is following to assist as needed with discharge planning.
[2020-07-20 19:33] VITALS: BP 148/72
[2020-07-21 03:04] VITALS: BP 160/62
[2020-07-21 06:09] LABS: CALCIUM 8.5 mg/dL (8.5-10.1); CREATININE 0.7 mg/dL (0.7-1.3); POTASSIUM 3.5 mmol/L (3.5-5.1)
[2020-07-21 07:33] VITALS: BP 158/74
[2020-07-21 10:41] LABS: BE(vivo) -2.5 mmol/L (-2 to +3); HCO3 19.9 mmol/L (22.0-26.0); PCO2 27.4 mmHg (35.0-45.0); PO2 84.5 mmHg (80.0-100.0); sO2 97.1 % (92.0-98.0)
[2020-07-21 11:51] VITALS: BP 152/81
--- NOTE | 2020-07-21 12:39 | NUR ---
CARE ASSUMED AT 0700, ALER AND OIRENTED X1, DISORIENTED TO PLACE, TIME AND SITUATION. PLEASANTLY CONFUSED. DENIES ANY PAIN, NAUSEA AND VMOTTING. PT CONTINUE TO BE ON 4L OF OXYGEN, SOB WITH EXERTION. PT IS ON BEDREST. SON CALLED AND FACETIME WITH PT. WILL CONTINUE TO TITRATE OXYGEN DOWN. FALL PRECAUTIONS IN PLACE. WILL CONTINUE TO MONITOR.
[2020-07-21 15:10] VITALS: BP 155/69
[2020-07-21 21:13] VITALS: BP 177/78
[2020-07-22 04:27] VITALS: BP 165/81
--- NOTE | 2020-07-22 04:47 | NUR ---
PT LYING IN BED. DENIES PAIN. RESTING COMFORTABLY. NO NEEDS VOICED. CALL LIGHT WITHIN REACH. FREQUENT OBSERVATION.
[2020-07-22 07:36] VITALS: BP 160/80
[2020-07-22 11:20] VITALS: BP 148/74
[2020-07-22 15:32] VITALS: BP 145/76
--- NOTE | 2020-07-22 17:49 | NUR ---
ASSUMED PATIENT CARE AT 0700. PATIENT ON COMFORT CARE HAS MORPHINE GTT ON. NOTED PATIENT PASS AWAY AT 1700. DR FAGAN AND QUINTON NOTIFIED.
--- NOTE | 2020-07-22 19:06 | NUR ---
ASSUMED PATIENT CARE AT 0700. ALERT TO SELF. SR/ST ON MONITOR. POOR APPATITE. TOLERATED ON 2-3 L 02. Q2H TURN. ASSISTED FACETIME WITH FAMILY. SLOWLY TOWARDS POC GOALS.
[2020-07-22 20:35] VITALS: BP 141/73
[2020-07-23 03:50] VITALS: BP 129/75
--- NOTE | 2020-07-23 04:57 | NUR ---
Pt. has been awake most of the night watching TV then did not start sleeping till around 0400. Maintaining O2 sat in the upper 90's on 2L/NC. He has loose cough. Repositioned for comfort. Max temp 99.6 orally this shift.
[2020-07-23 07:15] VITALS: BP 107/70
--- NOTE | 2020-07-23 07:22 | NUR ---
Pt.'s HR in the 150's this am. Dr. Sun notified , EGG obtained per order and stated he is on the way to see pt. Report given to day RN.
[2020-07-23 08:38] LABS: HEMATOCRIT 29.2 % (42.0-52.0); HEMOGLOBIN 9.9 gm/dL (14.0-18.0); MCH 29.8 pg (26.0-34.0); MCHC 33.8 g/dL (28.0-37.0); MCV 88.2 fL (80.0-100.0); RBC 3.31 mil/uL (4.50-6.00); RDW 23.1 % (10.5-14.5); WBC 20.5 thou/uL (4.0-11.0)
[2020-07-23 08:45] LABS: CREATININE 0.9 mg/dL (0.7-1.3); POTASSIUM 3.1 mmol/L (3.5-5.1)
[2020-07-23 11:20] LABS: MAGNESIUM 2.2 mg/dL (1.8-2.4)
[2020-07-23 11:30] VITALS: BP 122/68
[2020-07-23 15:27] VITALS: BP 129/83
--- NOTE | 2020-07-23 19:40 | NUR ---
RN ASSUMED PT'S CARE AT 0700AM, PT KNOWS HIS NAME , PT CAN FLOOW SOME COMMANDS, BUT PT IS CONFUSED AT TIME, PT NEEDS HELP MEALS AND CHANGE POSITION, RN HAS CALLED DR TO REPORT PT'S HR 130-150, EKG SHOWED SVT, ABNORMAL LAB RESULTS, PT STARTS IV FLUIDS AND POTTASIUM REPLACEMENT. PT'S HR HAS IMPROVED,
[2020-07-23 19:58] VITALS: BP 131/78
[2020-07-24 02:04] LABS: HEMATOCRIT 26.2 % (42.0-52.0); HEMOGLOBIN 8.8 gm/dL (14.0-18.0); MCH 29.8 pg (26.0-34.0); MCHC 33.7 g/dL (28.0-37.0); MCV 88.4 fL (80.0-100.0); RBC 2.97 mil/uL (4.50-6.00); RDW 22.3 % (10.5-14.5); WBC 21.3 thou/uL (4.0-11.0)
[2020-07-24 02:14] LABS: CALCIUM 8.5 mg/dL (8.5-10.1); CREATININE 0.9 mg/dL (0.7-1.3); POTASSIUM 3.2 mmol/L (3.5-5.1)
[2020-07-24 02:32] VITALS: BP 123/78
--- NOTE | 2020-07-24 02:45 | NUR ---
KEEPING O2 SATS 97% ON 2.5 LITERS, CONTINUES ON IV FLUIDS. BLOOD PRESSURE WNL'S. AFEBRILE. HEART RATE IS 130 CONSISTANTLY. SPOE WITH PROVIDER AND RECIEVED ORDER FOR HALDOL 1 MG IV, ONE TIME NOW. POTASSIUM LEVEL IS LOW THIS AM, IV SUPPLEMENT BEING INFUSED AT THIS TIME.
--- NOTE | 2020-07-24 03:33 | NUR ---
GAVE ONE TIME DOSE OF HALDOL 1 MG. THIS HAS SLIGHTLY TAKEN THE EDGE OFF HIS CONSTANT MOVEMENT AND FIDGETING. EKG COMPLETED, INDICATED SINUS TACHCARDIA, ASYMPTOMATIC. HEART RATE CONTINUES IN THE 130'S.
[2020-07-24 08:18] VITALS: BP 132/70
--- NOTE | 2020-07-24 10:25 | EKG ---
[facility] [place] [place] [address] ELECTROCARDIOGRAM REPORT Name: MIMI BRIDGES Room #: 360-P ADM IN M.R.#: [id number] Admission: 07/05/20 Attend Phys: Noble Sun MD Discharge: Date of : 38 Report #: [id number] THIS REPORT FOR: cc: Shakeel Hopkins MD, Kirk D. MD Lammoglia, Francisco J. MD ~ THIS REPORT FOR: //name// [facility] Test Date: 2020-07-24 Test Time: 03:17:43 Pat Name: MIMI BRIDGES Department: Room: 360 P Gender: M Podiatric Technician: NURSE : 1940 Requested By: Millie Horton Order Number: [id number] MD: Bart Michael Measurements Intervals [place] Rate: 130 P: 0 OK: 113 QRS: -43 QRSD: 97 T: 101 QT: 319 QTc: 469 Interpretive Statements Sinus tachycardia Left anterior fascicular block Nonspecific ST-T wave change Baseline wander in lead(s) V4 Compared to ECG 07/23/2020 07:11:20 Atrial tachycardia/flutter no longer present Electronically Signed On 07-24-2020 10:25:14 PLATFORM LOADER by Bart Michael [email or web address] <ELECTRONICALLY SIGNED> By: Bart Michael MD 07/24/20 1025 6 6 Bart Michael MD /EPI
--- NOTE | 2020-07-24 10:28 | EKG ---
[facility] [place] [address] [place] [address] ELECTROCARDIOGRAM REPORT Name: MIMI BRIDGES Room #: 360-P ADM IN M.R.#: [id number] Admission: 07/05/20 Attend Phys: Noble Sun MD Discharge: Date of : 38 Report #: [id number] THIS REPORT FOR: cc: Shakeel Hopkins MD, Kirk D. MD Lammoglia, Francisco J. MD ~ THIS REPORT FOR: //name// [facility] Test Date: 2020-07-23 Test Time: 07:11:20 Pat Name: MIMI BRIDGES Department: Room: 360 P Gender: M Operations Manager/Coordinator: [facility] : 1940 Requested By: Noble Sun Order Number: [id number] MD: Bart Michael Measurements Intervals [place] Rate: 150 P: 86 VA: 86 QRS: -55 QRSD: 97 T: 127 QT: 343 QTc: 542 Interpretive Statements Atrial tachycardia consider 2-1 block/flutter Ventricular premature complex Left anterior fascicular block LVH voltage criteria present leads I and aVL Compared to ECG 07/05/2020 14:17:17 Sinus tachycardia no longer present Electronically Signed On 07-24-2020 10:27:59 CARTOGRAPHY/MAPPING TECHNICIAN by Bart Michael [email or web address] <ELECTRONICALLY SIGNED> By: Bart Michael MD 07/24/20 1027 0 0 Bart Michael MD /EPI
[2020-07-24 11:40] VITALS: BP 134/81
[2020-07-24 15:31] VITALS: BP 130/64
--- NOTE | 2020-07-24 20:09 | NUR ---
RN ASSUMED PT'S CARE AT 0700AM , PT IS A&OX1 ( PERSON), PT CAN FOLLOW SOME COMMANDS, PT IS CONFUSED, PT EATS POOR AT MEAL TIME , PT IS CONTINUING IV FLUID D5@ 125ML/HR, PT IS ON O2 2L/MIN/NC, PT'S VS ARE STABLE AT DAY SHIFT.
[2020-07-24 20:10] VITALS: BP 130/67
[2020-07-25 00:25] VITALS: BP 117/62
[2020-07-25 05:05] VITALS: BP 119/63
--- NOTE | 2020-07-25 07:24 | NUR ---
Pt. has been awake most of the night. Still confused and oriented to person only. Frequent reorientation done. He has been repositioned for comfort. Cont. on enhanced precaution ,afebrile.Pt. had episode of tachycardia in the 140's, IT SECURITY ARCHITECT notified and order received. Metoprolol 2.5 mg IV given that brought HR down in the low 100's to 110's. Albumin x 1 dose also given. Maintaining O2 sat in the mid 90's . Tirado had 525 ml of urine. Kcl IV given for low K level per protocol.
[2020-07-25 07:25] LABS: HEMATOCRIT 22.1 % (42.0-52.0); HEMOGLOBIN 7.4 gm/dL (14.0-18.0); MCH 29.7 pg (26.0-34.0); MCHC 33.5 g/dL (28.0-37.0); MCV 88.7 fL (80.0-100.0); RBC 2.49 mil/uL (4.50-6.00); RDW 22.8 % (10.5-14.5); WBC 24.9 thou/uL (4.0-11.0)
[2020-07-25 07:38] LABS: CALCIUM 7.9 mg/dL (8.5-10.1); CREATININE 0.9 mg/dL (0.7-1.3); POTASSIUM 3.4 mmol/L (3.5-5.1)
--- NOTE | 2020-07-25 08:21 | NUR ---
PATIENT SEEN FOR REHAB CONSULT BY SANDIE LOPEZ NP WITH DR. SEGURA, ON JUL 22. PATIENT IS A POSSIBLE CANDIDATE FOR ACUTE REHAB. AT THIS TIME WILL CONTINUE TO FOLLOW. WILL SEEK AUTH FROM INSURANCE WHEN PATIENT IS MEDICALLY STABLE, NO LONGER IN ISOLATION AND HAS INCREASED TOLERANCE FOR THERAPY. THANK YOU FOR THIS REFERRAL.
[2020-07-25 08:30] VITALS: BP 111/69
[2020-07-25 11:38] VITALS: BP 126/48
[2020-07-25 11:43] LABS: % SATURATION 34 % (20-39); IRON 40 ug/dL (65-175); TIBC 118 ug/dL (250-450)
[2020-07-25 12:15] LABS: FOLIC ACID 15.6 ng/mL (8.6-58.9)
--- NOTE | 2020-07-25 15:33 | NUR ---
ARTIS reviewed chart and spoke with nursing and attending physician. Pt remains in Enhanced Isolation due to COVID-19. Pt is afebrile and on 2L of O2. 5N consulted and is following for possible admission to inpt acute rehab. Therapy to continue to work with pt to determine if pt meets the criteria for acute rehab. ARTIS discussed case with 5N director of cardiac rehabilitation. Pt's [facility] Dual complete policy terms today. ARTIS placed call to pt's room. No answer. ARTIS spoke with pt's dtr, Preeti, via phone to provide update and discuss insurance. Preeti is unaware if pt has signed up for another insurance policy. She will be going to his house [facility] and will see if she sees any insurance documentation. Preeti has pt's Medicare card. ARTIS updated UR RN and Director of Case Mgmt. ARTIS is following to assist as needed with discharge planning.
[2020-07-25 16:10] VITALS: BP 102/53
--- NOTE | 2020-07-25 19:13 | NUR ---
PT WAS ABLE TO COMMUNICATE WITH BOTH SON AND DAUGHTER VIA FACETIME TODAY, PT APPEARED CONFUSED WHENEVER SEEN BY RN, PT HAD THE NASAL CANULA OFF WELL THE GOWN AND THE ELCTRODES WERE DISARRANGED. RN READJUSTED THE PT, ADMINISTERED MEDS AND HELPED PT FACETIME SON. PT IS NOT PROGRESSING TOWARDS DISCHARGE TODAY, PT IS TO BE CONTINUALLY EVALLED FOR REHAB. RN SIGNING OFF AT THIS TIME
[2020-07-25 19:45] LABS: CALCIUM 8.1 mg/dL (8.5-10.1); CREATININE 0.8 mg/dL (0.7-1.3); POTASSIUM 3.4 mmol/L (3.5-5.1)
[2020-07-25 20:23] VITALS: BP 123/57
[2020-07-26 04:36] VITALS: BP 104/51
--- NOTE | 2020-07-26 06:30 | NUR ---
Pt. restless this am and wanting his armbands cut off. Explained to pt. that this could not be done. He was just transfered to this unit from [facility]. Bed alarm is on.
--- NOTE | 2020-07-26 07:03 | NUR ---
PT TRANSFERRED TO AROUND 0545. REPORT GIVEN TO 4W RN INCLUDING LAB DRAW AT 0600 POST K+ REPLACEMENTS. ALL BELONINGS, CHARTS, NEDS TRANFERRED WITH PT. SPOKE TO SON REGINA BRIDGES [phone] ABOUT TRANSFER. ALL QUESTIONS ASNWERED. LEFT THE UNIT ON STABLE CONDITION.
[2020-07-26 07:21] VITALS: BP 134/67
[2020-07-26 08:54] LABS: RBC 2.4 mil/uL (4.50-6.00)
[2020-07-26 08:56] LABS: HEMATOCRIT 21.6 % (42.0-52.0); HEMOGLOBIN 7.3 gm/dL (14.0-18.0); MCH 30.3 pg (26.0-34.0); MCHC 33.5 g/dL (28.0-37.0); MCV 90.4 fL (80.0-100.0); RDW 23.9 % (10.5-14.5); WBC 24.4 thou/uL (4.0-11.0)
[2020-07-26 09:06] LABS: CALCIUM 8.2 mg/dL (8.5-10.1); CREATININE 0.8 mg/dL (0.7-1.3); POTASSIUM 3.6 mmol/L (3.5-5.1)
[2020-07-26 15:02] VITALS: BP 142/56
--- NOTE | 2020-07-26 15:02 | NUR ---
PT'S DTR PROVIDED UPDATED INSURANCE INFO. IT WAS UPDATED IN OUR SYSTEM. PT HAD [facility] MEDICARE ADVANTAGE HMO PLAN OS OF TODAY. CM NOTIFIED 5N. OT WORKED WITH PT AND INDICATED THAT PT WAS NOT FULLY PARTICIPATORY AND LIKELY WOULDN'T BE ABLE TO TOLERATE 3HRS OF THERAPY IN THE NEAR FUTURE. PHYSICIAN INDICATED THAT IT WOULD BE APPROPRIAT TO REACH OUT TO PT'S DTR TO DISCUSS SNF. CM CALLED PT'S DTR CHUCHO AND LEFT A VM. CM TO PROVIDE SNF LIST FOR REVIEW FOR POSSIBLE DISCHARGE TOMORROW. CM TO FOLLOW INDICATED WITH DC PLANNING.
--- NOTE | 2020-07-26 17:32 | NUR ---
Received awake on bed. Due medications given as prescribed, able to swallow meds w/o difficulty. On O2 at 2lpm via nasal cannula, pt removing it from time to time; checked frequently and placed back. On pureed diet, honey thick diet- tolerating well; assisted and encouraged in eating and drinking; no nausea, no vomiting and no abdominal pain noted. On blood sugar monitoring, taken and recorded accordingly; sliding scale insulin given as prescribed. With breaux in place; draining well; output measured and recorded accordingly; new stat lock applied. Falls bundle in place. With 3 lumen PICC line in place at R upper arm; intact and flushing well; D5 at 125cc/hr, infusing well; on IV antibiotics. Pt seen and examined by Dr Wood today. Pt's daughter Preeti called this PM, update given. Pt turned on his sides every 2 hours, barrier cream applied to his buttocks. Prafo boots and SCDs in place. To continue monitoring patient.
[2020-07-26 20:16] VITALS: BP 121/54
--- NOTE | 2020-07-27 03:51 | NUR ---
VSS. NO S/S ACUTE DISTRESS NOTED OR REPORTED AT THIS TIME.
[2020-07-27 07:44] VITALS: BP 146/53
--- NOTE | 2020-07-27 10:44 | NUR ---
CM CALLED AND SPOKE WITH PT'S DTR PREM ROD. CM INDICATED THAT AT THIS TIME CARE TEAM HAD INDICATED THAT PT TIM WON'T BE ABLE TO TOLERATE 3H OF REHAB PER DAY THAT WOULD BE PROVIDED ON 5N. SHE ASKED THAT THERAPISTS USE IPAD TO PROMOTE ENCOURAGEMENT THEY HAD DONE ON 3W. CM INDICATED THAT CM WOULD CONVEY THAT TO THERAPY TEAM. CM EMAILED HER [employer] MEDICARE ADVANTAGE SNF LIST FOR REVIEW FOR REFERRALS TO BE SENT TO SNF. CM ASKED THAT SHE LET CM KNOW 3 PREFERENCES SOON POSSIBLE. CM TO FOLLOW INDICATED WITH DC PLANNING.
[2020-07-27 14:54] VITALS: BP 130/59
[2020-07-27 19:09] VITALS: BP 132/51
--- NOTE | 2020-07-27 19:50 | NUR ---
ASSUMED CARE OF PATIENT AT APPROX 0800. ASSESSMENT CHARTED. MEDICATIONS ADMINISTERED PER MAR IN APPLESAUSE. VSS. PATIENT IS ALERT TO SELF, CONFUSED AND FORGETFUL. PT/OT ATTEMPTED TO WORK WITH PATIENT BUT STATED UNABLE TO PARTICIPATE D/T CONFUSED STATE. PRESSURE REDUCING BOOTS AND FREQUENT TURNS/CHECKS TO REDUCE BEDSORE RISK. APPETITE IS POOR AND NEEDS ENCOURAGEMENT TO EAT BUT TOLERATING PUREED DIET WELL. SPOKE TO FAMILY TODAY AND SEEMED CONTENT. FLUIDS INFUSING ON R UPPER ARM PICC W NO ISSUES. FAMILY REALLY WANTING PATIENT TO GO TO REHAB AND NOT SNF. FALL PRECAUTIONS IN PLACE. ENDORSED TO NOC RN
--- NOTE | 2020-07-27 20:00 | NUR ---
I AGREE WITH NURSING ASSESSMENT AND NURSING NOTE DONE BY QUINTEN/LIFE SCIENCES DIRECTOR.
[2020-07-28 05:17] VITALS: BP 122/63
[2020-07-28 07:29] VITALS: BP 138/52
--- NOTE | 2020-07-28 07:37 | NUR ---
PROGRESS PT ALERT TO SELF HALLUCINATING ASKED IF I SEEN THE COW GO BY AND WAS HAVING A CONVERSATION WITH HIS . TAKES MEDS WITH APPLESAUCE PROFO BOOTS IN PLACE IVF'S INFUSING ORDERED REPOSITIONED NEEDED. ACCUCHECKS AND SSI CONTINUE
[2020-07-28 11:31] LABS: MCH 30.6 pg (26.0-34.0); MCHC 33.5 g/dL (28.0-37.0); MCV 91.2 fL (80.0-100.0); PLATELET COUNT 115 thou/uL (150-400); RBC 1.87 mil/uL (4.50-6.00); RDW 27.2 % (10.5-14.5); WBC 16.3 thou/uL (4.0-11.0)
[2020-07-28 11:35] LABS: HEMATOCRIT 17.1 % (42.0-52.0); HEMOGLOBIN 5.7 gm/dL (14.0-18.0)
--- NOTE | 2020-07-28 11:44 | NUR ---
ASSUMED CARE OF PATIENT AT SHIFT CHANGE. ASSESSMENT CHARTED. MEDICATIONS ADMINSTERED PER EMAR. VSS. PATIENT IS A&OX1 VERY CONFUSED. LABS DRAWN AT 1100 AND CRITICAL RESULTS WERE CALLED IN. PROVIDER NOTIFIED AT 1142. FAMILY AT BEDSIDE. CONTINUING TO MONITOR AND AWAITING ORDERS
[2020-07-28 12:15] LABS: ALBUMIN 2.4 g/dL (3.4-5.0); CALCIUM 7.7 mg/dL (8.5-10.1); CREATININE 0.6 mg/dL (0.7-1.3); MAGNESIUM 1.8 mg/dL (1.8-2.4); TOTAL BILIRUBIN 2.1 mg/dL (0.2-1.0)
[2020-07-28 12:21] LABS: POTASSIUM 2.7 mmol/L (3.5-5.1)
[2020-07-28 13:07] LABS: ABSOLUTE NEUTROPHILS 13.9 thou/uL (1.4-8.2); METAMYELOCYTES 1 %; NUCLEATED RBCS 2 /100WBC
[2020-07-28 13:08] LABS: ANISOCYTOSIS 2+
[2020-07-28 13:09] LABS: POLYCHROMASIA 1+
[2020-07-28 13:14] LABS: % SATURATION 28 % (20-39); IRON 39 ug/dL (65-175); TIBC 141 ug/dL (250-450)
[2020-07-28 13:22] LABS: ABSOLUTE RETIC COUNT 0.3569 10^6/uL; OBSERVED RETIC COUNT 17.08 % (0.6-2.6)
--- NOTE | 2020-07-28 14:38 | NUR ---
NURSE HAD BEEN ABLE TO FACE TIME WITH PT'S SON REGINA YESTERDAY EVENING. THERAPY USED THE IPAD DURING DUAL TREAT WITH PT AND OT THIS AM. DR. CROSS HAD SPOKEN WITH DTR PREM YESTERDAY AND HAS ORDERED CT OF THE HEAD, LABS, UA, AND REPEAT CHEST XRAY TO BE DONE. CM CALLED AND SPOKE WITH PT'S DTR CHUCHO THIS AFTERNOON. CM AGAIN EXPRESSED THAT BASED ON ENDURANCE AND PARTICIPATION THAT PT WOULD LIKELY BE MORE APPROPRIATE FOR SNF UPON DC THAN 5N, AND THAT PT'S [facility] INSURANCE LIKELY WOULDN'T AUTH ACUTE REHAB. SHE SAID WE'LL SEE HOW THE TESTS GO AND SE WHERE THEY WANT HIM TO GO UPON DISCHARGE. CM SPOKE WITH 5N LIAISON AND NOTIFIED THAT FAMILY IS STILL WANTING 5N AND THAT IT MIGHT TAKE A DENIAL OR THEM SPEAKING WITH FAMILY FOR THEM TO SELECT A SNF. THEY ARE AWARE AND AGREEABLE TO DO SO IF NEEDED. PT IS ALSO GETTING BLOOD TODAY. CM TO FOLLOW INDICATED WITH DC PLANNING.
[2020-07-28 15:24] VITALS: BP 109/53
[2020-07-28 16:37] LABS: URINE BILIRUBIN NEGATIVE (Negative); URINE BLOOD NEGATIVE (Negative); URINE CLARITY CLOUDY; URINE COLOR YELLOW; URINE GLUCOSE-RANDOM* NEGATIVE (Negative); URINE KETONES NEGATIVE (Negative); URINE NITRITE-REFLEX NEGATIVE (Negative); URINE PROTEIN (DIPSTICK) NEGATIVE (Negative); URINE UROBILINOGEN 0.2 E.U./dl (0.2-1.0)
[2020-07-28 16:38] LABS: URINE LEUKOCYTES-REFLEX 3+ (Negative)
[2020-07-28 16:46] LABS: BACTERIA-REFLEX 1-9 Few /HPF (None Seen); CASTS None Seen /LPF (None Seen); CRYSTALS None Seen /LPF (None Seen); SQUAMOUS None Seen /LPF (0-3); URINE RBC None Seen /HPF (0-2); YEAST-REFLEX Present (None Seen)
--- NOTE | 2020-07-28 17:37 | NUR ---
I AGREE WITH NURSING ASSESSMENT AND NURSING NOTE DONE BY QUINTEN/SAP BPC ARCHITECT.
--- NOTE | 2020-07-28 19:12 | NUR ---
PATIENT RECIEVED UNIT OF BLOOD W NO ISSUES. PATIENT WENT DOWN FOR CT OF HEAD. RECIEVED IN BED, REPOSITIONED AND MADE COMFORTABLE. PRESSURE REDUCING BOOTS IN PLACE, SCDS ON. ENDORSED TO MUKESH. ZAID.
[2020-07-29 05:32] LABS: RBC 2.1 mil/uL (4.50-6.00); RDW 25.6 % (10.5-14.5)
[2020-07-29 05:33] LABS: HEMOGLOBIN 6.7 gm/dL (14.0-18.0); MCH 31.6 pg (26.0-34.0); MCHC 34.4 g/dL (28.0-37.0); WBC 11.7 thou/uL (4.0-11.0)
[2020-07-29 05:40] LABS: HEMATOCRIT 19.3 % (42.0-52.0)
[2020-07-29 06:01] LABS: ALBUMIN 2.1 g/dL (3.4-5.0); CALCIUM 7.8 mg/dL (8.5-10.1); CREATININE 0.6 mg/dL (0.7-1.3); MAGNESIUM 1.9 mg/dL (1.8-2.4); POTASSIUM 3.2 mmol/L (3.5-5.1); TOTAL BILIRUBIN 1.5 mg/dL (0.2-1.0); TOTAL PROTEIN 4.9 g/dL (6.4-8.2)
[2020-07-29 07:09] VITALS: BP 122/52
[2020-07-29 09:48] VITALS: BP 113/49
[2020-07-29 10:58] VITALS: BP 113/49; BP 131/60
--- NOTE | 2020-07-29 16:27 | NUR ---
PT RECIEVED MORE BLOOS TODAY. PT'S DTR WAS PRESENT FOR THERAPY THIS MORNING. CARE TEAM INDICATED THAT PT IS SHOWING SOME IMPROVEMENT WITH THERAPY AND APPEARED TO BE CLEARER THIS AM. CARE TEAM INDICATED NO WEEKEND DC ANTICPATED. POSSIBLE DC TO 5N BEGINING OF NEXT WEEK IS APPROPRIATE VS. SNF. CM TO FOLLOW INDICATED WITH DC PLANNING.
--- NOTE | 2020-07-29 17:49 | NUR ---
ASSUMED CARE OF PATIENT AT SHIFT CHANGE. ASSESSMENT CHARTED. MEDICATIONS ADMINISTERED PER MAR; CRUSHED IN PUDDING. PATIENT IS ALERT TO SELF AND BRIEFLY WAS LUCID AND ORIENTED TO PLACE AND SITUATION THIS A.M. BUT IS CURRENTLY CONFUSED AGAIN. IS INCONT OF B&B; CONDOM CATH IN PLACED AND CHANGED X1 TODAY. RECIEVED UNIT OF BLOOD W NO ISSUES OR ADVERSE REACTIONS; MONITORING LABS. STOOL SAMPLE TO BE COLLECTED FOR OCCULT BLOOD. PRECAUTIONS IN PLACE TO PREVENT SKIN BREAKDOWN. FALL PRECAUTIONS IN PLACE. DENIES PAIN, EVEN WHEN WORKING WITH PT/OT. CURRENTLY EXPRESSING WORD SALAD BUT APPEARS IN NO DISTRESS; POOR INTAKE BUT ENCOURAGED TO EAT. WILL CONTINUE TO MONITOR
[2020-07-30 07:28] VITALS: BP 142/53
[2020-07-30 15:50] LABS: MCH 31.7 pg (26.0-34.0)
[2020-07-30 15:53] LABS: HEMOGLOBIN 8.5 gm/dL (14.0-18.0); MCV 93.2 fL (80.0-100.0); RBC 2.69 mil/uL (4.50-6.00); RDW 23.8 % (10.5-14.5); WBC 14.9 thou/uL (4.0-11.0)
--- NOTE | 2020-07-30 19:17 | NUR ---
Alert, calm and cooperative. finished about 50% for 3 meals.
[2020-07-30 20:40] VITALS: BP 106/61
--- NOTE | 2020-07-31 04:47 | NUR ---
VSS-AFEBRILE. RESTED WELL THROUGH NIGHT WITH FEW NEEDS. REMAINS PLEASANTLY CONFUSED, DENIES ANY PAIN. VOIDING WITHOUT DIFFICULTY. TURNED AND OFFERED ORAL HYDRATION EVERY TWO HOURS FOR COMFORT. FALL PRECAUTIONS IN PLACE.
[2020-07-31 05:07] LABS: CREATININE 0.5 mg/dL (0.7-1.3); MAGNESIUM 1.8 mg/dL (1.8-2.4); POTASSIUM 3.1 mmol/L (3.5-5.1)
[2020-07-31 05:18] LABS: HEMOGLOBIN 7.5 gm/dL (14.0-18.0); MCV 92.2 fL (80.0-100.0)
[2020-07-31 05:20] LABS: HEMATOCRIT 21.3 % (42.0-52.0); MCH 32.4 pg (26.0-34.0); MCHC 35.2 g/dL (28.0-37.0); RBC 2.31 mil/uL (4.50-6.00); RDW 23.4 % (10.5-14.5); WBC 8.4 thou/uL (4.0-11.0)
[2020-07-31 08:00] VITALS: BP 130/64
--- NOTE | 2020-07-31 11:52 | NUR ---
PT RESTING IN BED TOOK AM MEDS AND ATE BREAKFAST CAN FEED SELF WITH SET UP, WILL ASSIST TO BEDSIDE CHAIR. CALLED DR CROSS FOR TYLENOL PRN ORDER.
[2020-07-31 15:45] VITALS: BP 108/53
[2020-08-01 05:28] LABS: HEMATOCRIT 20.8 % (42.0-52.0); HEMOGLOBIN 7.2 gm/dL (14.0-18.0); MCH 31.6 pg (26.0-34.0); MCHC 34.4 g/dL (28.0-37.0); MCV 92.1 fL (80.0-100.0); RBC 2.26 mil/uL (4.50-6.00); RDW 23.3 % (10.5-14.5); WBC 8.1 thou/uL (4.0-11.0)
[2020-08-01 05:45] LABS: CALCIUM 8.2 mg/dL (8.5-10.1); CREATININE 0.6 mg/dL (0.7-1.3); MAGNESIUM 1.8 mg/dL (1.8-2.4); POTASSIUM 3.6 mmol/L (3.5-5.1)
[2020-08-01 07:18] VITALS: BP 112/55
--- NOTE | 2020-08-01 08:05 | NUR ---
PROGRESS PT A/O X4 UP AD MAIRA VOIDING QS PER URINAL. ACCUCHECKS AND SSI CONTINUE. TOLERATING DIET DENIES PAIN TELE INTACT VSS. CONTINUE POC.
[2020-08-01 12:27] LABS: ABSOLUTE RETIC COUNT 0.2708 10^6/uL; OBSERVED RETIC COUNT 9.89 % (0.6-2.6)
[2020-08-01 12:35] LABS: ALBUMIN 2.3 g/dL (3.4-5.0); DIRECT BILIRUBIN 0.5 mg/dL (<0.1-0.2); TOTAL BILIRUBIN 2.1 mg/dL (0.2-1.0); TOTAL PROTEIN 5.9 g/dL (6.4-8.2)
--- NOTE | 2020-08-01 18:44 | NUR ---
Patient got up with PT maximum help to the bedside commode, had a BM.
--- NOTE | 2020-08-01 19:02 | NUR ---
Discharge order was placed by Dr. Wood, discharge document not done by any doctor, so the staff did not discharge the patient.
[2020-08-01 19:56] VITALS: BP 124/57
--- NOTE | 2020-08-02 02:49 | NUR ---
PT CARE ASSUMED WITH PT WATCHING TV.PT IS A/O X3 AND CONFUSE.PT IS MAX ASSIST.PT IS ON PUREED DIET AND HONEY THICKEN LIQUID.PT INCONTINENT TO B/B.PT IS ACCUCHECK ACHS.WILL CONTINUE TO MONITOR PER POC
[2020-08-02 07:17] VITALS: BP 136/70
[2020-08-02 07:58] LABS: HEMATOCRIT 23.2 % (42.0-52.0); MCH 31.3 pg (26.0-34.0); MCHC 34.3 g/dL (28.0-37.0); MCV 91.3 fL (80.0-100.0); RBC 2.54 mil/uL (4.50-6.00); RDW 22.5 % (10.5-14.5); WBC 7.3 thou/uL (4.0-11.0)
[2020-08-02 14:37] VITALS: BP 108/63
--- NOTE | 2020-08-02 15:34 | NUR ---
PT A&OX3, FORGETFUL, VSS, DENIES PAIN. PATIENT TOLERATING DIET. PATIENT ON ROOM AIR. PICC LINE RIGHT ARM PATENT, FLUIDS RUNNING. PATIENT USES URINAL. NSR ON TELE MONITOR. NO SIGNS OF DISTRESS. WILL CONTINUE TO MONITOR.
--- NOTE | 2020-08-02 15:49 | NUR ---
CM MET WITH PT AND DTR AT BEDSIDE THIS DAY. PT WAS VERY ALERT AND APPEARED ORIENTED X4 AT TIME OF VISIT. PT INDICATED THAT HE WANTS THE MOST INTENSIVE (MEANINGFULL) THERAPY AVAIABLE. PT INDICATED DESIRE TO GO TO 5N ACUTE REHAB. 5N LIAISON INDICATED THAT PT IS PROGRESSING TO WHERE THE WOULD BE A GOOD CANDIDATE FOR ADMISSION AND THEY ARE SUBMITTING FOR INSURANCE AUTH. IT IS THE HOPE THAT AUTH WILL BE RECEIVED AND THAT PT COULD GO TO 5N TOMORROW. CM TO FOLLOW INDICATED WITH DC PLANNING.
[2020-08-02 19:54] VITALS: BP 113/60
[2020-08-03 07:39] VITALS: BP 111/59
--- NOTE | 2020-08-03 07:54 | HC ---
[facility] [place] [address] CONSULTATION Name: MIMI BRIDGES Room #: 460-P ADM IN M.R.#: [id number] Admission: 07/05/20 Attend Phys: Noble Sun MD Discharge: Date of : 38 Report #: [id number] THIS REPORT FOR: cc: Shakeel Hopkins MD, Kirk D. MD McKittrick, Richard James MD ~ REASON FOR CONSULTATION: Anemia. HISTORY OF PRESENT ILLNESS: The patient is an 79-year-old male with a history of hereditary spherocytosis. He had been seen probably 8 years ago by one of my partners, Dr. Kat Lynn. At that time, his hemoglobin was 12.9, MCV was 90, spleen was 21.5 cm that was in 08/2011. The patient was admitted to the hospital on 07/05. He had come to the ER at [facility] with COVID pneumonia. He presented with shortness of breath, which occurred over the last several days. He had tested positive on 07/04. The patient has been treated with convalescent plasma, remdesivir and steroids. On admission, his hemoglobin had been approximately 9.8, in the next few days was 9.2 and 8.7. It has mostly been in the 9s. Then, beginning about 07/25, it has been in the 7 range. His most recent hemoglobin was 7.2 yesterday. He did receive 2 units of blood; one on 07/28, his hemoglobin went from 5.7-6.7 and again received a second unit of blood on 07/29 and his hemoglobin went from 6.7-8.5. He has been Hemoccult negative. His B12 and folate have been normal. His absolute retic count has been elevated at 0.2708. His B12 and folate had been appropriate. His creatinine has been stable at around 0.6. His haptoglobin has been low. His total bilirubin has been slightly elevated in the 2.1 range. His LDH has been slightly elevated at 431, alkaline phosphatase has been normal. Recent transaminases normal. Albumin slightly low. Iron panel appears to be adequate. Coags had been normal about 2 weeks ago. Platelets have been low normal range between 135 and as low as 96, recently 111. His TSH this admit had been normal. His UA has been negative for blood or rbc's. PAST MEDICAL HISTORY: Notable for hereditary spherocytosis with spleen still intact. Also, history of recent COVID pneumonia, hypertension, type 2 diabetes, hypothyroidism, and also bladder difficulties. 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 Denies tobacco or alcohol use. MEDICATIONS: At this time in the hospital currently include potassium replacement, Tylenol, magnesium replacement, diltiazem 180 daily, levothyroxine 100 mcg daily, loperamide 2 mg every 6 hours p.r.n., insulin on a sliding scale, albuterol 2 puffs respiratory therapy q.6, famotidine 20 b.i.d. IV, levofloxacin begun on 07/31 for [address] [address] CONSULTATION Name: MIMI BRIDGES Room #: 460-P ADM IN [facility]#: [id number] Admission: 07/05/20 Attend Phys: Noble Sun MD Discharge: Date of : 38 Report #: [id number] IMAGING STUDIES: This admit mostly includes chest x-rays and also a CT head. The chest x-ray describes unchanged right PICC line and hardened blood vessels unchanged, areas of atelectasis and pneumonia increase in the right lung base. PHYSICAL EXAMINATION: GENERAL: The patient appears his stated age. VITAL SIGNS: Height is 6 feet 2 inches, 187.9 cm. Weight 218 pounds or 99.1 kg. He is afebrile at 98.5, pulse 95, respirations 18, blood pressure 124/57. MOOD: He is pleasant, very conversant. NEUROLOGIC: Thought pattern seems a bit off center as he tends to ramble. Face appears symmetrical. LUNGS: Mostly clear. There is some soft rhonchi when he coughs. Oropharynx clear. HEART: Regular rate. LYMPHATICS: No enlarged lymph nodes on exam in the supraclavicular, cervical, axillary or inguinal region. ABDOMEN: There may be a spleen palpable. Difficult to tell, it is somewhat off to the far side or very deep. EXTREMITIES: Without clubbing, cyanosis. There is some trace edema. ASSESSMENT AND PLAN: 1. 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 As you are doing optimizing production, folate, B12 and iron are replete. I do not think there would have been any benefit from a bone marrow biopsy. The patient does not appear to be hemolyzing more than usual with a total bilirubin despite compensated at around 2 with an LDH most likely chronically elevated, they do not have outside lab. I would expect his bone marrow being slightly slow down from recent pneumonia. I would expect this to improve, do not think there is any other intervention warranted at this time. 2. Pneumonia. Continue anti-infectives and oxygen. 3. Lung disease. Continue inhalers. 4. Hypothyroid, replace. 5. Diabetes. Accu-Cheks and sliding scale insulin. We will follow along. I doubt the patient would benefit from a splenectomy, could consider abdominal imaging, but he is not having abdominal pain and hemoglobin is fairly stable, I do not think that is warranted at this time. <ELECTRONICALLY SIGNED> By: Howie Villanueva MD 08/03/20 [id number] Howie Villanueva MD /nt
--- NOTE | 2020-08-03 13:35 | NUR ---
CM HAD BEEN UNDER THE IMPRESSION THAT LIAISON HAD SUBMITTED FOR INSURANCE AUTH FOR POSSIBLE ADMISSION YESTERDAY BUT IT HADN'T BEEN SUBMITTED. AUTH WAS SUBMITTED FOR THIS AFTERNOON. AWAITING INSURANCE AUTH FOR PT TO GO TO 5N ACUTE INPATIENT REHAB. CM TO FOLLOW INDICATED WITH DC PLANNING.
[2020-08-03 15:02] VITALS: BP 110/55
[2020-08-03 15:07] LABS: HEMATOLOGY COMMENTS Note: (()); HEMOGLOBIN 7.9 g/dL (13.0-17.7)
--- NOTE | 2020-08-03 18:16 | NUR ---
PT CARE ASSUMED AT 0700. A&Ox4 WITH FORGETFULL EPISODES. UP WITH RHEA IN CHAIR MOST OF THE DAY. LATEX ALLERGY. EXTERNAL BUENO DUE TO URGENCY INCONTINENCE. NO STRAWS WITH THIN LIQUIDS. ACHS. PER PT 3-4L OF O2 WITH ACTIVITY. LUNGS ARE COARSE. TRIPLE LUMEN PICC FLUSHES AND DRAWS BACK. IV PATENT WITH NO REDNESS OR EDEMA, FLUIDS INFUSING. PENDING INSURANCE APPROVAL FOR 5N ADMISSION. FAMILY IN ROOM. FALL PROTOCOL IN PLACE. CALL LIGHT IN REACH. WILL CONTINUE TO MONITOR.
[2020-08-03 19:30] VITALS: BP 119/47
[2020-08-04 07:26] VITALS: BP 123/51
--- NOTE | 2020-08-04 08:09 | NUR ---
Assumed pt care at 1900. A/OX3,with confusion noted but able to make needs known. VSS. NSR on telemetry. Pt is incontinent of bladder,condom catheter in place and patent with yellow urine. RUE triple PICC in place and patent. Fall precautions in place.
--- NOTE | 2020-08-04 12:10 | NUR ---
Case discussed with the care team. Dc plan is 5N acute rehab once auth in place. 5N liason to f/u with ins today.
--- NOTE | 2020-08-04 12:21 | NUR ---
Received awake on bed. Due medications given as prescribed, able to swallow meds w/o difficulty. On room air. Vital signs stable. On telemetry; no complains and signs of chest pain, crushing sensation and heaviness. Assisted in ADLs. On mechanically altered ground diet- tolerating well; no nausea, no vomiting and no abdominal pain noted; assisted and encouraged in eating and drinking. On blood sugar monitoring, taken and recorded accordingly. Falls bundle in place. Incontinent of bowel and bladder, with condom cath in place- checked regularly and changed as needed. With 3 lumen [address]ICC line in place- D5 at 125cc/hr, infusing well at R upper arm; dressing C/D/I. With excoriation on his buttocks, ointment applied; turned regularly. Visited by niki this AM, update given. Still a/w insurance authorization as per ; physician updated as well. To continue monitoring patient.
[2020-08-04 15:09] VITALS: BP 130/54
[2020-08-04 19:45] VITALS: BP 124/53
--- NOTE | 2020-08-05 01:22 | NUR ---
PATIENT DENIED ALL PSYCH ISSUES DURING ASSESSMENT. PATIENT DENIED PAIN OR DISCOMFORT. PATIENT WAS CALM AND COOPERATIVE WITH CARE AND MEDS.PATIENT WAS HAD A SITTER. PATIENT DISCHARGED AROUND 0110 ACCOMPANIED BY 2 EMS TO RESEARCH PSYCH. REPORT GIVEN. VS DONE AND WNL.
--- NOTE | 2020-08-05 03:43 | NUR ---
PATIENT AOX4 MAKES NEEDS KNOWN. FALL PRECAUTION IN PLACE. PATIENT DENIED PAIN OR DISCOMFORT.PATIENT HAS [place] CATH.PATIENT IN BED ASLEEP AT THIS TIME BREATHING REGULAR AND UNLABOURED.
[2020-08-05 08:33] VITALS: BP 127/69
[2020-08-05 09:02] VITALS: BP 127/69
--- NOTE | 2020-08-05 14:03 | NUR ---
Received awake on bed. Due medications given as prescribed, able to swallow meds w/o difficulty. On room air, O2 with activities. Vital signs stable. On telemetry; no complains and signs of chest pain, crushing sensation and heaviness. On Mechanically altered ground diet; tolerating well, no nausea, no vomiting and no abdominal pain noted; assisted and encouraged in eating and drinking. On blood sugar monitoring, taken and recorded accordingly; with sliding scale insulin ordered. Incontinent of bowel and bladder, with condom catheter in place; draining well- output measured and recorded accordingly. With 3 lumen PICC line at R upper arm; D5 at 125cc/hr, infusing well. Able and assisted in turning on his sides. Falls bundle in place. Still a/w insurance authorization for transfer to [facility] and physician aware. To continue monitoring patient.
--- NOTE | 2020-08-05 14:05 | NUR ---
cm notified by [facility] that acute rehab request has been sent to p2p. dr ramírez going to do the [facility] # [phone] option 5 then give 2 pt id ( and policy #). has to be called before 9 am on 08/08/2020. if p2p over turn, dc to 5n acute rehab. if not look into skilled rehab referrals will need to be sent out. possible will want forum.
[2020-08-05 16:44] VITALS: BP 127/53
--- NOTE | 2020-08-05 18:03 | NUR ---
PATIENT IS A CANDIDATE FOR 5N AND ADMISSION PENDING AUTHORIZATION FROM PATIENT'S INSURANCE. DR. SEGURA WITH 5N PROVIDED PEER TO PEER WITH PATIENT'S INSURANCE THIS DATE. INSURANCE TO CONTACT ACUTE HOSPITAL DIRECTOR [employer] WITH RESPONSE TO PEER TO PEER WHEN DECISION HAS BEEN MADE. IF APROVAL RECEIVED WILL ADMIT TO 5N. WEEKEND LIAISON IS ANTONIETA Kaba AND SHOULD BE CALLED TO FACILITATE 5N ADMISSION. CELL #[phone].
--- NOTE | 2020-08-06 04:27 | NUR ---
Pt. rested quietly during the night when checked on during frequent rounds. He offers no complaints of pain or discomfort. Bed alarm is on.
[2020-08-06 07:21] VITALS: BP 109/51
--- NOTE | 2020-08-06 11:30 | NUR ---
Received awake on bed. Due medications given as prescribed, able to swallow meds w/o difficulty. Vital signs stable. On telemetry; no complains and signs of chest pain, crushing sensation and heaviness. On room air, O2 PRN during activity. On mechanically altered diet- assisted and encouraged in eating and drinking; tolerating well, no nausea, no vomiting and no abdominal pain noted. On blood sugar monitoring, taken and recorded accordingly. Able to turn in bed. With excoriation on his buttocks, turned regularly, Z guard applied, on low airloss mattress. With 3 lumen PICC line on R upper arm- D5 at 125cc/hr, infusing well. Incontinent of bowel and bladder, able to use urinal at times; checked regularly and changed as needed. Still a/w insurance authorization for transfer to . To continue monitoring patient.
[2020-08-06 14:37] VITALS: BP 128/64
[2020-08-06 20:41] VITALS: BP 128/67
--- NOTE | 2020-08-07 06:00 | NUR ---
Pt. rested quietly at intervals during the night when checked on during frequent rounds. He offers no c/o pain or discomfort. Bed alarm is on.
[2020-08-07 08:24] VITALS: BP 131/76
[2020-08-07 16:49] VITALS: BP 142/81
[2020-08-07 18:16] LABS: HEMATOCRIT 23.6 % (42.0-52.0); HEMOGLOBIN 8.2 gm/dL (14.0-18.0); MCH 31.8 pg (26.0-34.0); MCHC 34.5 g/dL (28.0-37.0); MCV 92.1 fL (80.0-100.0); PLATELET COUNT 100 thou/uL (150-400); RBC 2.56 mil/uL (4.50-6.00); RDW 22.5 % (10.5-14.5); WBC 7.8 thou/uL (4.0-11.0)
[2020-08-07 18:43] LABS: ALBUMIN 2.6 g/dL (3.4-5.0); CALCIUM 8.3 mg/dL (8.5-10.1); CREATININE 0.9 mg/dL (0.7-1.3); POTASSIUM 4.2 mmol/L (3.5-5.1); TOTAL BILIRUBIN 1.6 mg/dL (0.2-1.0); TOTAL PROTEIN 5.5 g/dL (6.4-8.2)
[2020-08-07 18:57] LABS: ABSOLUTE NEUTROPHILS 6.6 thou/uL (1.4-8.2); ANISOCYTOSIS 3+; NUCLEATED RBCS 3 /100WBC; POLYCHROMASIA 1+
--- NOTE | 2020-08-07 19:12 | NUR ---
PT A&OX4, VSS, DENIES PAIN. PATIENT USED URINAL. MOVES IN BED HIMSELF. ASSESSMENT COMPLETED, NOTES GIVEN ORDERED. NO SIGNS OF DISTRESS. WILL CONTINUE TO MONITOR.
[2020-08-07 19:24] VITALS: BP 139/61
--- NOTE | 2020-08-08 02:05 | NUR ---
ASSUMED CARE OF PT AT 1900HRS. PT AOX3-4 AND LETS NEEDS BE KNOWN. FALL PRECAUTION IN PLACE. PT DENIED PAIN, NAUSEA OR SOA. ASSESSMENT CHARTED. PT WAS ABLE TO GET COMFORTABLE AND SLEEP PART OF TEHE SHIFT. VSS AND NO S/S OF ACUTE DISTRESS. WILL CONTINUE TO MONITOR.
[2020-08-08 07:53] VITALS: BP 129/70
[2020-08-08 09:19] VITALS: BP 129/70
[2020-08-08] MEDS ORDERED: PROVENTIL HFA6.7 G1 INH (11:27)
[2020-08-08] MEDS ORDERED: FLOMAX0.4 MG PO (11:27)
[2020-08-08] MEDS ORDERED: CARDIZEM CD 18180 M3 PO (11:28)
--- NOTE | 2020-08-08 12:36 | NUR ---
A PEER TO PEER HAD BEEN DONE SATURDAY AND AUTH WAS RECEIVED THIS AM FOR PT TO GO TO 5N. PT AND DTR PREM ARE AWARE AND AGREEABLE WITH DC TO 5N THIS AFTERNOON AROUND 1300. NO OTHER CM INTERVENTION INDICATED CASE CLOSED.
--- NOTE | 2020-08-08 13:19 | NUR ---
ASSUMED PT CARE THIS AM. PT VSS, ALERT AND ORIENTED, BUT EASILY CONFUSED AT TIMES. PT FORGETFUL ABOUT TASKS HE IS TRYING TO COMPLETE. PT HAS NO COMPLAINTS OF PAIN. PLEASANT, AND CALLS APPROPRIATELY WHEN NEEDED. IV IS PATENT, FLUIDS INFUSING WELL. ON ROOM AIR. REPORTS GENERALIZED WEAKNESS. TOOK MEDS WELL THIS AM WITHOUT COMPLAINT. PT DISCHARGED, AND REPORT CALLED AND GIVEN TO 5N NURSE MEENA.
== END 2020-08-08 13:50 | DRG 870 ==
LOC: ER 13:34 → ICU 15:55 → EROBS 15:55 → 3W 15:55 → ICU 07-08 01:29 → 3W 07-20 03:30 → 4W 07-26 06:01
PROVIDERS: Internal Medicine; Internal Medicine Gastroenterology; Internal Medicine Hematology & Oncology; Internal Medicine Pulmonary Disease; Nurse Practitioner; Nurse Practitioner Family; Pediatrics; Physician Assistant; Specialist; ADMIT Hospitalist; ATTEND Hospitalist
PROC: XW033E5 Introduction of Remdesivir Anti-infective into Peripheral Vein, Percutaneous Approach, New Technology Group 5 (ICD-10-PCS; principal; 2020-07-06)
PROC: XW13325 Transfusion of Convalescent Plasma (Nonautologous) into Peripheral Vein, Percutaneous Approach, New Technology Group 5 (ICD-10-PCS; principal; 2020-07-06)
PROC: 5A0935A Assistance with Respiratory Ventilation, Less than 24 Consecutive Hours, High Flow/Velocity Cannula (ICD-10-PCS; 2020-07-07)
PROC: 02HV33Z Insertion of Infusion Device into Superior Vena Cava, Percutaneous Approach (ICD-10-PCS; 2020-07-07)
PROC: 0BH17EZ Insertion of Endotracheal Airway into Trachea, Via Natural or Artificial Opening (ICD-10-PCS; 2020-07-08)
PROC: 5A1955Z Respiratory Ventilation, Greater than 96 Consecutive Hours (ICD-10-PCS; 2020-07-08)
PROC: 0B9F8ZX Drainage of Right Lower Lung Lobe, Via Natural or Artificial Opening Endoscopic, Diagnostic (ICD-10-PCS; 2020-07-17)
PROC: 30233N1 Transfusion of Nonautologous Red Blood Cells into Peripheral Vein, Percutaneous Approach (ICD-10-PCS; 2020-07-28)
DX: A41.9 Sepsis, unspecified organism (principal); U07.1 COVID-19; J12.9 Viral pneumonia, unspecified; J96.01 Acute respiratory failure with hypoxia; J96.02 Acute respiratory failure with hypercapnia; G92 Toxic encephalopathy; E43 Unspecified severe protein-calorie malnutrition; E87.0 Hyperosmolality and hypernatremia; D61.818 Other pancytopenia; G72.81 Critical illness myopathy; I47.1 Supraventricular tachycardia; I10 Essential (primary) hypertension; E11.9 Type 2 diabetes mellitus without complications; E03.9 Hypothyroidism, unspecified; N40.0 Benign prostatic hyperplasia without lower urinary tract symptoms; E87.6 Hypokalemia; Z66 Do not resuscitate; Z51.5 Encounter for palliative care; D58.0 Hereditary spherocytosis; R13.10 Dysphagia, unspecified; T38.0X5A Adverse effect of glucocorticoids and synthetic analogues, initial encounter; Y92.89 Other specified places as the place of occurrence of the external cause; Z88.0 Allergy status to penicillin; Z91.040 Latex allergy status; Z88.8 Allergy status to other drugs, medicaments and biological substances; Z68.28 Body mass index [BMI] 28.0-28.9, adult; Z79.899 Other long term (current) drug therapy
CPT/HCPCS: 10045; 10078; 10203; 10879; 27000

== ENCOUNTER 2020-08-08 08:49 | Inpatient (IN) | payer OTHER ==
[~2020-08-08] VITALS: Ht 190.5 cm; Wt 99.8 kg
[~2020-08-08 08:49] MED LIST: BENADRYL25 MG PO; EUTHYROX100 MCG PO; PEPCID20 MG PO; TERAZOSIN HCL5 MG PO
[2020-08-08] MEDS ORDERED: FLOMAX0.4 MG PO (11:27)
[2020-08-08] MEDS ORDERED: PROVENTIL HFA6.7 G1 INH (11:27)
[2020-08-08] MEDS ORDERED: CARDIZEM CD 18180 M3 PO (11:28)
[2020-08-08 14:10] VITALS: BP 121/61
--- NOTE | 2020-08-08 15:47 | NUR ---
PT ARRIVED AT 1400 FROM 4S. ALERT AND ORIENTED*4. DENIES PAIN AT THIS TIMES. VITALS REMAIN STABLE. PICC ON RIGHT UPPER ARM DC'D BY IV TEAM PER ORDER. PT HAS A SACRAL WOUND, CLEANED Z-GUARD APPLIED AND PT REPOSITIONED Q2H. PT WEAK, STATED HE HASN'T WALKED FOR 6 WEEKS THEREFORE TOILETING VIA BEDPAN & URINAL UNTIL EVALUATION BY THERAPIES TOMORROW. Q1H VISUAL CHECKS. CALL LIGHT WITHIN REACH
--- NOTE | 2020-08-08 17:44 | NUR ---
RUATLPICC REMOVED WITH DSG CHG, CLOT NOTED AT THE TIP. PT NOT ON ANY IV MEDS
[2020-08-08 19:59] VITALS: BP 124/73
--- NOTE | 2020-08-09 05:22 | NUR ---
PT ASSESSMENT COMPLETED AND VSS. MEDS GIVEN ORDERED AND WELL TOLERATED. TYLENOL ORDERED FOR CONTINUED LEFT LEG PAIN. HELPFUL. SAT WNL ON RA. PT TURNED AND Z GUARD APPLIED TO RED SACRUM. SLEEPING. PLEASANT. FORGETFUL. FALL PRECAUTIONS IN PLACE. INC OF URINE TWO TIMES. VOIDED PER URINAL ONE TIME. SLEEPING WELL. WILL CONTINUE TO MONITOR FREQUENTLY.
[2020-08-09 06:22] LABS: HEMATOCRIT 25.4 % (42.0-52.0); HEMOGLOBIN 8.8 gm/dL (14.0-18.0); MCH 31.9 pg (26.0-34.0); MCHC 34.6 g/dL (28.0-37.0); MCV 92.2 fL (80.0-100.0); RBC 2.76 mil/uL (4.50-6.00); RDW 22.9 % (10.5-14.5); WBC 8.5 thou/uL (4.0-11.0)
[2020-08-09 06:38] LABS: CALCIUM 8.6 mg/dL (8.5-10.1); CREATININE 0.9 mg/dL (0.7-1.3); POTASSIUM 3.9 mmol/L (3.5-5.1)
[2020-08-09 07:15] VITALS: BP 110/48
--- NOTE | 2020-08-09 10:33 | NUR ---
ASSUMED CARE AT 0700. PATIENT IS ALERT AND ORIENTED X4, BUT FORGETFUL. PATIENT GALINDO'S, SOLUTION DESIGN ENGINEER ARE EQUAL. LUNGS ARE CLEAR AND DEMINISHED. ABD IS SOFT WITH BSX4. PATIENT VOIDS PER URINAL AMBE COLORED URINE. FALL AND SAFETY PROTOCOLS IN PLACE. DENIES PAIN. CONTINUES TO PROGRESS SLOWLY TOWARDS D/C GOALS. WILL CONTINUE TO MONITER.
--- NOTE | 2020-08-09 10:54 | NUR ---
WOUND CONSULT; ASSESSMENT OF THE WOUND PICTURE WAS FRICTION AND UPON PATIENT ASSESSMENT IT WAS CONFIRMED. LINIAR PRESENTATIONS WITH FRAYED SKIN CONSISTANT WITH FRICTION/SHEARING. SUPERFICIAL. MUCH IMPROVEMENT EVEN SINCE THE LAST PICTURE TAKEN. MY ASSESSMENT WAS DURING THERAPY. THE PATIENT STOOD UP WITH ASSISTANCE FOR A MINUTE OF SO. NO BRUISING SEEN. THE PATIENT IS ALERT AND ORIENTED AND INGAGED IN HIS THERAPRIES. HE IS MOTIVATED AND ENGAGED. RECOMMENDATIONS; 1- ZGUARD TO BUTTOCKS TID. 2- Q2H TURNING WHIOLE IN BED. DISCUSSED WITH ZAID
--- NOTE | 2020-08-09 17:06 | NUR ---
TEAM CONFERENCE: PT IS ON [facility] SOF SOLID DIET W/THIN LIQUIDS. PLAN IS TO RE-TEAM. CM UPDATE PT AND SON, REGINA. REGINA STATED, THE PLAN IS FOR PT TO STAY W/DTR, JOHN FOR "A WEEK OR HOWEVER LONG HE NEEDS TO." PT LFT VM FOR PT'S DTRPREM.
[2020-08-09 19:35] VITALS: BP 122/66
--- NOTE | 2020-08-10 01:11 | NUR ---
TURNED TO SIDE AND Z-GUARD APPLIED TO PINK BUTTOCKS WHICH ARE WORSE ON THE LEFT. USING URINAL WITH NO SPILLS SO FAR TONIGHT. LOW AIR LOSS MATTRESS THERAPY CONTINUES. APPRECIATES APPLESAUCE WHEN GIVING MEDS WHOLE WITH APPLESAUCE. PLEASANT
[2020-08-10 03:06] LABS: GLYCOHEMOGLOBIN (HGB A1C) 4.3 % (4.8-5.6)
[2020-08-10 08:00] VITALS: BP 116/69
--- NOTE | 2020-08-10 08:58 | NUR ---
ASSUMED CARE AT 0700. PATIENT IS ALERT AND ORIENTEDX4. PATIENT GALINDO'S, PORTABLE TRACK CREW CHIEF ARE EQUAL. LUNGS ARE CLEAR AND DEMINISHED. ABD IS SOFT WITH BSX4. PATIENT VOIDS JABARI COLORED URINE PER URINAL. UP WITH ASSIST OF 1-2 WITH MODERATE ASSISTANCE. FALL AND SAFETY PROTOCOLS IN PLACE. DENIES PAIN AT THIS TIME. CONTINUES TO PROGRESS TOWARDS D/C GOALS. WILL CONTINUE TO MONITER.
--- NOTE | 2020-08-10 11:40 | NUR ---
RD visited pt this am due to positive nutrition admission screening. Upon visit pt reporting he has a good apeptite and "could eat anyone under the table". PO intake averages x 5 days noted at 82%. Pt denies any recent wt changes. Per chart review wt appears stable since admit. Pt with no nutritional questions/concerns. Pt is low nutritional risk.
--- NOTE | 2020-08-10 13:52 | NUR ---
Pt admitted to acute rehab on 08/08/20 d/t critical illness myopathy. The pt had a lengthy hospital stay approx one month d/t Covid. Prior to admission the pt was indep and lived alone in his own home. He did not have use any dme or hh prior. He is motivated to get stronger and return home. Mechanic Driver spoke with the pt's dtr Thelma who indicates that the family had discussed the pt staying with his step dtr Cat, but ultimately Cat works outside the home and the pt prefers to return to his own home at co. Thelma updated on team conference schedule and expecting an update next week with his progress and elos. She reports that she lives 10 minutes from the pt and has a flexable work schedule. The pt's home has a ramp to enter and can be adapted for him to avoid steps. He has a TV room or den with two steps but they will plan on moving his TV. Pt's dtr can help with the laundry which is also down 2 steps. He has a bath chair but no other dme. Pt is currently on a [facility] soft diet with thin liquids. His pcp is Dr. Shakeel Hopkins. [place] plan at this time is home with HH and family support. They deny HH agency preference. Reteam next Saturday.
[2020-08-10 19:30] VITALS: BP 110/58
--- NOTE | 2020-08-10 22:08 | NUR ---
PT ASSESSMENT COMPLETED AND VSS. MEDS GIVEN ORDERED AND WELL TOLERATED. FALL PRECAUTIONS IN PLACE. PRN TYLENOL HELPFUL FOR LEFT LEG PAIN. PT IS ANXIOUS TO GO HOME AND STARTED TAKING CARE OF HIS RENTAL PROPERTY. TALKED WITH HIM ABOUT HOW SICK HE WAS AND HOW IT TAKES TIME TO GET STRENGTH BACK. ASST WITH REPOSITION FOR COMFORT. SLEEPING. WILL CONTINUE TO MONITOR FREQUENTLY.
[2020-08-11 08:15] VITALS: BP 96/54
--- NOTE | 2020-08-11 17:25 | NUR ---
ASSUMED CARE OF PT AT 0700. PT IS A&OX4 AND VITAL SIGNS ARE STABLE. PT DENIES PAIN AND PARTICIPATED IN SCHEDULED THERAPIES. WOUND TO SACRUM CLEANSED AND BARRIER CREAM APPLIED. PT CALLING APPROPRIATELY. FALL PRECAUTIONS IN PLACE AND NURSING WILL CONTINUE TO MONITOR.
[2020-08-11 19:29] VITALS: BP 101/62
--- NOTE | 2020-08-12 01:20 | NUR ---
PT ALERT AND ORIENTED X 4. PT TOOK HS MEDS IN APPLESAUCE WITHOUT DIFFICULTY. PT DENIES PAIN OR DISCOMFORT. BED ALARM ON FOR SAFETY. PT APPEARS TO BE SLEEPING ON HOURLY ROUNDS.
[2020-08-12 07:15] VITALS: BP 122/57
--- NOTE | 2020-08-12 14:05 | NUR ---
ASSUMED CARE OF PT AT 0700. PT IS A&OX4 AND VITAL SIGNS ARE STABLE. PT DENIES PAIN AND PARTICIPATED IN SCHEDULED THERAPIES. WOUND TO SACRUM CLEANSED AND Z-GUARD APPLIED. PT ENCOUARGED TO REPOSITION FREQUENTLY BY STAFF WITH Q2 TURNS. MAX ASSISTANCE WITH TRANSFERS. FALL PRECAUTIONS IN PLACE AND NURSING WILL CONTIUE TO MONITOR.
[2020-08-12 20:00] VITALS: BP 122/55
--- NOTE | 2020-08-13 01:47 | NUR ---
MED IN APPLESAUCE, TURNED TO SIDE AND Z-GUARD APPLIED TO PINK BUTTOCKS, TODAY WORSE ON RIGHT BUTTOCK. USING URINAL, HOPES TO GO HOME EARLY IN WEEK, STATES GOOD SUPPORT FROM A FEW NEIGHBORS THAT ARE 'PRETTY TIGHT KNIT' AND ARE ABLE TO HELP HIM WITH A LITTLE LIGHT YARD WORK.
[2020-08-13 08:00] VITALS: BP 111/52
--- NOTE | 2020-08-13 15:51 | NUR ---
ASSUMED CARE OF PT AT 0700. PT IS A&OX4 AND VITAL SIGNS ARE STABLE. PT DENIES PAIN AND PARTICIPATED IN SCHEDULED THERAPIES. FAMILY IN THE ROOM WITH PATIENT, FAMILY ASKED TO WEAR MASK AT ALL TIMES, BUT WAS FOUND TO BE NOT WEARING THE MASK ON MULTIPLE OCCASSIONS. LATEX ALLERGIES NOTED. PT TURNED AND REPOSITIONED Q2H. FALL PRECAUTIONS IN PLACE AND NURSING WILL CONTINUE TO MONITOR.
[2020-08-13 20:00] VITALS: BP 108/57
--- NOTE | 2020-08-14 01:22 | NUR ---
PT ASSESSMENT COMPLETED AND VSS. MEDS GIVEN ORDERED AND WELL TOLERATED. FALL PRECAUTIONS IN PLACE. UP TO THE BSC WITH 2 ASST/GAIT. LARGE FORMED SOFT BM. VOIDING MODERATE AMOUNT OF URINE PER URINAL. INC OF URINE AT TIMES. ASST WITH REPOSITION FOR COMFORT USING PILLOWS. ZGUARD APPLIED TO PRESSURE WOUND ON BOTTOM. SLEEPING WELL. WILL CONTINUE TO MONITOR FREQUENTLY.
[2020-08-14 07:15] VITALS: BP 97/53
--- NOTE | 2020-08-14 12:34 | NUR ---
ASSUMED CARES AT 0700. PT AWAKE, ALERT AND ORIENTED*4. DENIES PAIN. BP LOW THIS AM 97/53, ALL OTHER VITALS REMAIN STABLE, WILL CONTINUE TO MONITOR. SACRAL WOUND CLEANED AND BARRIER CREAM APPLIED, PT REMINDED TO REPOSITION NEEDED. UP WITH THERAPY AND AMBULATED WITH GB AND WALKER AND TOLERATED WELL. Q1H VISUAL CHECKS. CALL LIGHT WITHIN REACH. FALL PRECAUTIONS IN PLACE.
--- NOTE | 2020-08-14 20:00 | NUR ---
ASKING FOR HS MEDS
[2020-08-14 20:05] VITALS: BP 105/65
--- NOTE | 2020-08-15 02:02 | NUR ---
TURNING SELF IN BED, Z-GUARD TO PINK BILATERAL BUTTOCKS, USING URINAL. UP TO BSC WITH 1P ASSIST TAKING 3 STEPS TO BSC FOR LARGE SOFT-FORMED BM. TYLENOL FOR ACHING KNEES. HOPING TO GO HOME SOMETIME THIS WEEK AND AWARE OF "RE-TEAMING" ON SATURDAY.
[2020-08-15 06:19] LABS: HEMATOCRIT 25.8 % (42.0-52.0); HEMOGLOBIN 8.9 gm/dL (14.0-18.0); MCH 32.3 pg (26.0-34.0); MCHC 34.4 g/dL (28.0-37.0); MCV 93.9 fL (80.0-100.0); PLATELET COUNT 100 thou/uL (150-400); RBC 2.75 mil/uL (4.50-6.00); RDW 22.6 % (10.5-14.5); WBC 6.3 thou/uL (4.0-11.0)
[2020-08-15 06:33] LABS: CALCIUM 8.7 mg/dL (8.5-10.1); CREATININE 0.8 mg/dL (0.7-1.3); MAGNESIUM 2.1 mg/dL (1.8-2.4); POTASSIUM 3.4 mmol/L (3.5-5.1)
[2020-08-15 08:00] VITALS: BP 121/67
[2020-08-15 09:10] LABS: ABSOLUTE NEUTROPHILS 4.3 thou/uL (1.4-8.2); METAMYELOCYTES 1 %; PLATELET ESTIMATE NORMAL
--- NOTE | 2020-08-15 13:27 | NUR ---
ASSUMED CARE AT 0700. PT IS ALERT AND ORIENTATED, PLESANT AND TALKATIVE. SLEPT OFF AND ON LAST NIGHT. DENIES ANY PAIN OR SHORT OF AIR. HE STATES READY TO GO HOME AND HOPEFULLY BEFORE MILENA. PARTICIPATING IN THERAPY AND PROGRESSING. HAD A BM TODAY. DIURESING WELL. NO OTHER CONCERNS, WILL CONT TO MONITOR.
[2020-08-15 19:08] VITALS: BP 123/66
--- NOTE | 2020-08-15 23:01 | NUR ---
CRITICAL RESULT COVID POSITIVE. CALLED TO GLENDY SHARMA NP. NO NEW ORDERS RECEIVED.
--- NOTE | 2020-08-15 23:47 | NUR ---
PT ALERT AND ORIENTED X 4. PT TOOK HS MEDS IN APPLESAUCE WITHOUT DIFFICULTY. PT CALLED FOR HS MEDS APPROPRIATELY. PT DENIES PAIN OR DISCOMFORT. BED ALARM ON FOR SAFETY. PT APPEARS TO BE SLEEPING ON HOURLY ROUNDS.
[2020-08-16 08:12] VITALS: BP 120/70
--- NOTE | 2020-08-16 12:01 | NUR ---
Nutrition followup: pt continues on rehab unit eating 100% of meals on regular diet. No weight since 08/08 but prior stable weights. Skin tears present on sacrum/buttock/coccyx. Constipation resolved. Pt without questions/concerns related to foodservice. Able to order meals as desired. Low nutrition risk.
--- NOTE | 2020-08-16 12:06 | NUR ---
WOUND D/C SUMMARY; THE PATIENT WILL BE D/C'D TO HOME TOMORROW. THE BUTTOCKS WOUNDS ARE COMPLETLY HEALED. I DISCUSSED OFFLOADING STRATEGIES WITH THE PATIENT AND THE IMPORTANCE OF KEEPING UP HIS STRENGTH. THE PATIENT STATES HE ALREADY DECIDED TO GET A [facility] MEN[facility]SHIP. RECCOMMENDATIONS; CONTINUE BARRIER CREAM AT HOME. DISCUSSED WITH STAFF
--- NOTE | 2020-08-16 12:56 | NUR ---
Team Conference: pt admitted w/ dx of CIM. needs supervision for upper dressing, and lower dressing. pt is contact guard w/transfers, 250 ft w/fww w/stand-by assist. 97% on room air. per PT, "fatiques w/ activity." pt presents w/mild-mod cognitive deficit and moderate memory deficit. pt present w/confusion with organizing and taking medication, "but getting better/ST. pt needs FWW. pt has no HH preference. pt to d/c home w/hh: RN, PT, OT, and ST. [employer] d/c date is 08/24/20 to home w/freq checks, preferably w/dtr "working from home first day home."
[2020-08-16 15:19] VITALS: BP 121/73
--- NOTE | 2020-08-16 15:54 | NUR ---
jenni dean w/ashu who stated she will pick pt up on 08/24. ashu would prefer d/c time to be after 12 noon. ashu can stay with pt all afternoon. and the 1/2 of the day the following morning. ashu stated she will be coming over tonight to bring two different pill boxes "so he can pick." ashu said she will set up his pills. ashu stated she "checks on him 4x/day so she will remind him to take medication. pt has walker w/ "a shelf" and he wants to use that one. per ashu, staying at step-dtrs home is not an option b/c "she works at a school and dad can not live through another covid." ashu has no hh preference.
[2020-08-16 20:00] VITALS: BP 111/57
--- NOTE | 2020-08-16 20:17 | NUR ---
ASSUMED CARE OF PT AT 0700. PT IS A&OX4 AND VITAL SIGNS ARE STABLE. PT DENIES PAIN AND PARTICIPATED IN SCHEDULED THERAPIES. REQUIRES SUPERVISION WITH TRANSFERS. PT TO CALL FOR MEDS, BUT FAILED TO CALL THIS SHIFT. Z-GUARD APPLIED TO THE BUTTOCKS, PT REPOSITIONS SELF. FALL PRECAUTIONS IN PLACE AND NURSING WILL CONTINUE TO MONITOR.
--- NOTE | 2020-08-17 01:22 | NUR ---
ASSESSMENT: PT REMAIN ALERT AND ORIENT TIMES FOUR. [place] POSSIBLE DC TO HOME WITHIN 1-2 DAYS. TEAM CONFERENCE MEETING HAS TAKEN PLACE. DID CALL FOR MEDICATIONS AT 1900. PT WITH CLAUDE AND YOKASTA
[2020-08-17 07:15] VITALS: BP 120/72
--- NOTE | 2020-08-17 10:41 | H ---
[facility] [place] [address] HISTORY AND PHYSICAL Name: MIMI BRIDGES Room #: 504-1 ADM IN M.R.#: [id number] Admission: 08/08/20 Attend Phys: Joe Ordoñez MD Discharge: Date of : 38 Report #: [id number] THIS REPORT FOR: cc: Shakeel Hopkins MD, Kirk D. MD Smithson, David G. MD ~ DATE OF SERVICE: 08/08/2020 ADDENDUM HISTORY OF PRESENT ILLNESS: Please see the full history and physical documentation. Agree with the documentation as noted. The patient has had a prolonged hospital stay prior to his rehabilitation stay with COVID-19, required intubation, mechanical ventilation, steroids, prolonged ICU stay, multiple consultant nurse physicians with Infectious Disease, Pulmonary, Hematology, and Hospitalist involved in his care. He is noted to have a history of hereditary spherocytosis. He has had electrolyte abnormalities. He has been treated for pneumonia. He has had problems with some decreased cognition and confusion with multifactorial encephalopathy, which has improved. He has critical illness myopathy with a marked decrease in his overall function, but he has improved and showed improved tolerance and has now been ready for acute in-hospital inpatient rehabilitation. As far as past medical history, allergies, social history, habits, please see the documentation. MEDICATIONS: See the MAR. ALLERGIES: LATEX AND PENICILLIN. REVIEW OF SYSTEMS: As documented. No chest pain, shortness of breath, abdominal discomfort. PHYSICAL EXAMINATION: GENERAL: He is a pleasant, somewhat verbose, 79-year-old white male in no obvious distress. He is alert, follows basic one-step commands without difficulty. 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 VITAL SIGNS: Temperature 36.8, pulse 86, respirations 18, blood pressure 110/48. He is alert, pleasant. HEENT: Appear to be benign. NEUROLOGIC: Cranial nerves are grossly intact. Facies are symmetric. CHEST: Some diffuse decreased breath sounds throughout. CARDIOVASCULAR: Sounded regular rate and rhythm. ABDOMEN: Bowel sounds positive, nontender. [facility] [address] [place] [address] HISTORY AND PHYSICAL Name: MIMI BRIDGES Room #: 504-1 ADM IN .R.#: [id number] Admission: 08/08/20 Attend Phys: Joe Ordoñez MD Discharge: Date of : 39 Report #: [id number] GENITOURINARY AND RECTAL: Deferred. NEUROMUSCULOSKELETAL: He has functional range of motion of both upper and lower extremities with strength probably a grade 3+ to 4-/5. DTRs are trace to 1. He appears to have some decreased sensation in distal lower extremities. He was able to sit up in bed for me reasonably well, I would call it at a contact guard assistance. Otherwise, functionally, he has been max assist, trying to come to stand. He is very motivated. ASSESSMENT: An 79-year-old male with the following problem list: 1. Critical illness myopathy. 2. Toxic metabolic encephalopathy. 3. COVID-19 pneumonia with SARS. 4. Hereditary spherocytosis. 5. Dysphagia. Speech has been involved. Currently, mechanical soft, thin liquid. 6. Hypertension. 7. Diabetes mellitus type 2. PLAN: The patient has been admitted for acute in-hospital inpatient rehabilitation. Please see the patient's previous and current functional status. As far as risk of complications, he has multiple medical comorbidities as noted above. Prognosis is reasonably good with estimated length of stay probably at least 2-3 weeks pending progress. Potential barriers would include his multiple medical comorbidities and decreased functional status. <ELECTRONICALLY SIGNED> By: Joe Ordoñez MD 08/17/20 1041 [id number] 1100 Joe Ordoñez MD /[facility]
--- NOTE | 2020-08-17 10:42 | PLAN ---
[facility] [place] [address] [place] [address] REHAB UNIT PLAN OF CARE Name: MIMI BRIDGES Room #: 504-1 ADM IN M.R.#: [id number] Admission: 08/08/20 Attend Phys: Joe Ordoñez MD Discharge: Date of : 39 Report #: [id number] THIS REPORT FOR: cc: Shakeel Hopkins MD, Kirk D. MD Smithson,Joe Thrasher MD ~ DATE OF SERVICE: 08/10/2020 PROGRESS NOTE AND OVERALL PLAN OF CARE SUBJECTIVE: The patient is seen back today in followup. He is in no distress. Last recorded temperature is 97.9, pulse 94, respirations 20, blood pressure 122/66. He is alert, pleasant, somewhat verbose, very cooperative and motivated. Temperature 36.6, pulse 94, respirations 20, blood pressure 122/66. Transfers are max assist sit to stand. Once up, he is ambulating 4 feet, max assist x 2 with a front-wheeled walker. In occupational therapy, lower body dressing is max assist. He is working in speech therapy with moderate cognitive deficits and moderate memory deficits. ASSESSMENT: An 79-year-old white male with the following problem list: 1. Critical illness myopathy. 2. Toxic metabolic encephalopathy. 3. COVID-19 pneumonia with SARS. 4. Hereditary spherocytosis. 5. Dysphagia. He is on mechanical soft, thin liquid diet as per speech. 6. Hypertension. 7. Diabetes mellitus type 2. PLAN: The overall plan of care is based on the preadmission screen and information garnered from therapy assessments. 1. Estimated length of stay is probably at least 2-3 weeks pending progress. 2. Medical prognosis is reasonably good. 3. Anticipated interventions includes the interdisciplinary acute inpatient rehabilitation program. 4. Anticipated functional outcomes would be for the patient to improve as far as transfers, mobility, ADLs at the walker level as well as improvement in communication, cognition and swallowing, so that he can return back to the home setting. 5. Discharge destination would be back home. There is a daughter that involved and he is noted to have several children in the area and so additional assistance is being considered with the family for when he is ready to return back to the home setting. 6. Expected therapy by discipline includes PT, OT and speech 1 hour per day each five days a week throughout the duration of the acute inpatient rehabilitation stay. [address] [address] REHAB UNIT PLAN OF CARE Name: MIMI BRIDGES [place] Room #: 504-1 [facility] IN ..#: [id number] Admission: 08/08/20 Attend Phys: Joe Ordoñez MD Discharge: Date of : 39 Report #: [id number] The patient's prognosis for significant practical improvement within a reasonable period of time appears good. Given the patient's complex medical condition and risk of further medical complications, rehabilitation services could not be safely provided at a lower level of care such as a shelter facility. <ELECTRONICALLY SIGNED> By: Joe Ordoñez MD 08/17/20 1042 [id number] Joe Ordoñez MD /nt
--- NOTE | 2020-08-17 11:24 | NUR ---
ASSUMED CARE AT 0700. PT IS ALERT AND ORIENTATED, PLESANT AND TALKATIVE. DENIES ANY PAIN. SLEPT OFF AND ON. UP WITH MIN ASSIST WITH GAIT BELT AND WALKER. APPETITE GOOD. WOUND CARE TO SACRUM DONE WITH Z GUARD. SKIN PINK AND SKIN INTACT. PT CALLED FOR HIS AM MEDS. PLAN FOR DC HOME ON 08/24. PROGRESSING WITH THERAPY. CONT TO MONITOR.
--- NOTE | 2020-08-17 13:48 | NUR ---
Discharge Plan: pt is scheduled to d/c on 08/24 to home w/dustin Varela [facility] is able to accept pt and needs d/c orders faxed to [phone]. Pt dtrDereka prefers a d/c time set for after 12 p.m. and she will apple picking supervisor pt and stay with at home throughout the day and the following morning. Pt needs a FWW. (pt is comtemplating using a walker he already has d/t it having a "shelf")
--- NOTE | 2020-08-17 19:50 | NUR ---
CALLING FOR EVENING MEDS, TOLERATING SWALLOWING THEM WITH WATER, TURNING SELF IN BED. PLANS TO GO HOME ON 08/24.
[2020-08-17 20:00] VITALS: BP 118/63
[2020-08-18 07:50] VITALS: BP 107/65
--- NOTE | 2020-08-18 09:47 | NUR ---
ASSUMED CARE AT 0700. PT IS ALERT AND ORIENTATED. SLEPT BETTER LAST NIGHT WITH MELATONIN. DENIES ANY PAIN. FEELING MUCH BETTER EACH DAY. LUNGS CLEAR, BS PRESENT, APPETITE GOOD, HAD A BM YESTERDAY. PARTICIPATING WITH THERAPY AND PROGRESSING WELL. NO CONCERNS AT THIS TIME. CONT TO MONITOR. PLAN FOR DC HOME ON 08/24.
[2020-08-18 19:38] VITALS: BP 145/54
--- NOTE | 2020-08-19 00:57 | NUR ---
ASSUMED CARE OF PT AT 1915 ON 08/18/20. PT IS A&OX4. IS ON ROOM AIR. DENIES PAIN. IS UP WITH 1 ASSIST, GB, WALKER. FALL PRECAUTIONS & HOURLY ROUNDING CONINTUED THIS SHIFT. PT IS STABLE. REFUSED TO PUT ON PJS. INSISTED ON SLEEPING IN CLOTHES. EDUCATION PROVIDED. LABS REVIWED. VITLAS ASSESSED. PT IS ABLE TO TURN SELF IN BED. IS CURRENTLY WATCHING TV. CALL LIGHT WIHIN REACH. WILL CONTINUE TO MONITOR.
[2020-08-19 07:30] VITALS: BP 113/58
--- NOTE | 2020-08-19 13:43 | NUR ---
ASSUMED CARE OF PT AT 0700. PT IS A&OX4 AND VITAL SIGNS ARE STABLE. PT DENIES PAIN AND PARTICIPATED IN CARES THIS SHIFT. PT SUPERVISION WITH TRANSFERS AND AMBULATION, DISCSSED WITH THERAPY POSSIBLE MOD I IN ROOM PRIOR TO DISCHARGE. PT CALLED APPROPRIATELY FOR MEDICATION. FALL PRECAUTIONS IN PLACE AND NURSING WILL CONTINUE TO MONITOR. FALL PRECAUTIONS IN PLACE AND NURSING WILL CONTINUE TO MONITOR.
[2020-08-19 20:00] VITALS: BP 105/53
--- NOTE | 2020-08-20 00:44 | NUR ---
PT ALERT AND ORIENTED X 4. PT CALLED FOR HS MEDS APPROPRIATELY. VOIDING WITHOUT DIFFICULTY PER URINAL. PT DENIES PAIN OR DISCOMFORT. BED ALARM ON FOR SAFETY. PT APPEARS TO BE SLEEPING ON HOURLY ROUNDS.
[2020-08-20 05:39] LABS: HEMATOCRIT 23.1 % (42.0-52.0); HEMOGLOBIN 7.9 gm/dL (14.0-18.0); MCH 31.9 pg (26.0-34.0); MCHC 34.2 g/dL (28.0-37.0); MCV 93.2 fL (80.0-100.0); PLATELET COUNT 105 thou/uL (150-400); RBC 2.48 mil/uL (4.50-6.00); RDW 21.3 % (10.5-14.5); WBC 5.4 thou/uL (4.0-11.0)
[2020-08-20 05:50] LABS: CALCIUM 8.9 mg/dL (8.5-10.1); CREATININE 0.8 mg/dL (0.7-1.3); MAGNESIUM 1.9 mg/dL (1.8-2.4); POTASSIUM 3.6 mmol/L (3.5-5.1)
[2020-08-20 07:15] VITALS: BP 126/59
--- NOTE | 2020-08-20 09:16 | NUR ---
ASSUMED CARE AT 0700. PT IS A&O X4. FALL PRECAUTION. CALL LIGHT WITHIN REACH. PT USES TIOLET WITH STANDBY ASSIST X1 WITH GAIT BELT. LATEX ALLERGY POSTED IS IN FRONT OF ROOM. ASPIRATION PRECAUTION. PT SITS UP 90 DEGREES WHEN EATING AND TAKING PILLS . NON PRODUCTIVE COUGH. VSS. WOUND CARE APPLIED TO BUTTOCK. PT DENIES WEAK, SOA, AND N/V.SCD HOSE ARE IN PLACE. WILL CONTINUE TO MONITOR
[2020-08-20 10:28] LABS: ABSOLUTE NEUTROPHILS 3.9 thou/uL (1.4-8.2); NUCLEATED RBCS 2 /100WBC
[2020-08-20 10:29] LABS: POLYCHROMASIA 2+
[2020-08-20 19:24] VITALS: BP 113/51
--- NOTE | 2020-08-21 02:06 | NUR ---
PT WAS OBSERVED LYING ON HIS BED WATCHING TV AT THE START OF SHIFT.PT DENIED PAIN.PT CALLED OUT FOR HIS HS MEDS ON TIME.SPIRATION PRECAUTION IN PLACE. PT SLEPT AFTER TAKNG HIS MEDS.Z GUARD TO HIS BUTTOCKS.PT SLEEPING ON HIS BED AT THIS TIME.CALL LIGHT WITHIN REACH.
[2020-08-21 07:15] VITALS: BP 113/44
--- NOTE | 2020-08-21 10:10 | NUR ---
ASSUMED CARE AT 0700 THIS MORNING. PT. CALLED OUT FOR MEDICATION AT THE CORRECT TIME. HE IS PLEASANT AND COOPERATIVE. HE IS A&Ox4, CALL LIGHT WITHIN REACH, LATEX PRECAUTIONS LISTED ON THE DOOR FRONT. HE GETS UP TO THE BATHROOM WITH STANDBY ASSIST x1/GAIT BELT. HE HAS BEEN SITTING ON THE SIDE OF THE BED WHEN MEDS WERE GIVEN (90 DEGREES). REFUSED WOUND CARE THIS MORNING, STATING, "IT WAS JUST DONE". INFORMED HIM THIS RN WOULD DO IT BEFORE LEAVING AT THE END OF THE DAY OR WHEN HE DECIDES IT NEEDS DONE.
[2020-08-21 19:16] VITALS: BP 118/47
--- NOTE | 2020-08-22 02:27 | NUR ---
ASSUMED CARE OF PT AT 1900HRS. PT AOX4 AND LETS NEEDS BE KNOWN. FALL PRECAUTION IN PLACE. PT DENIED PAIN, NAUSEA OR SOA. PT SETS REMINDERS AND CALLED FOR MEDS IN A TIMELY MANNER. PT AMBULATED TO THE TOILET THIS SHIFT WITH ASSISTANCE. PT WAS ABLE OT GET COMFORTABLE AND SLEEP PART OF THE SHIFT. VSS AND NO S/S OF ACUTE DISTRESS. WILL CONTINUE TO MONITOR.
[2020-08-22 05:52] LABS: HEMATOCRIT 24.7 % (42.0-52.0); HEMOGLOBIN 8.5 gm/dL (14.0-18.0); MCH 32.1 pg (26.0-34.0); MCHC 34.5 g/dL (28.0-37.0); MCV 92.9 fL (80.0-100.0); RBC 2.66 mil/uL (4.50-6.00); RDW 20.8 % (10.5-14.5); WBC 6.2 thou/uL (4.0-11.0)
[2020-08-22 06:11] LABS: CALCIUM 8.8 mg/dL (8.5-10.1); CREATININE 0.8 mg/dL (0.7-1.3); MAGNESIUM 1.9 mg/dL (1.8-2.4); POTASSIUM 3.7 mmol/L (3.5-5.1)
[2020-08-22 07:28] VITALS: BP 122/72
--- NOTE | 2020-08-22 10:54 | NUR ---
on-going assessment: CRISTHIAN WAS NOTIFIED THAT PTS DISCHARGED IS NOW GOING TO BE ON 08/23 TO DISCHARGE HOME WITH HH ([facility] HAS ACCEPTED). CM NOTIFIED [facility] THAT PT WILL LEAVE ON 08/23 AND THEY STATE THEY WILL JUST NEED ORDERS FAXED TO THEM AT DISCHARGE. CRISTHIAN SPOKE WITH PATIENTS DAUGHTER PREM WHO REPORTS SHE IS AWARE OF DISCHARGE TOMORROW AND PLANS ON PICKING PATIENT UP AT 1PM. SHE REPORTS PT HAS HIS WALKER AT HOME AND WILL NOT NEED ONE AT DISCHARGE.
--- NOTE | 2020-08-22 18:14 | NUR ---
PT DISCUSSED DESIRE TO DC SOON POSSIBLE WITH . TENTATIVE PLANS FOR DC MOVED UP TO TOMORROW AND CM HAS BEEN NOTIFIED. JADON CORTES IN TO DISCUSS WITH PATIENT HIS QUESTIONS ABOUT MEDS. PATIENT DID NOT REMEMBER TO CALL FOR MEDS THIS AM, AND AUTO CLUTCH SPECIALIST WAS NOTIFIED. PT WILL LIKELY NEED SOMEONE TO REMIND HIM TO TAKE MEDS AT HOME, OR ASSIST HIM TO SET ALARMS. PT TOLERATED THERAPIES WELL TODAY, AND VERBALIZED EXCITEMENT ABOUT POTENTIAL OF GOING HOME TOMORROW.
[2020-08-22 19:10] VITALS: BP 125/56
--- NOTE | 2020-08-23 02:02 | NUR ---
TURNING SELF TO SIDE, USUALLY HIS RIGHT SIDE IN ORDER TO STAY OFF HIS BOTTOM. UP TO TOILET FOR VOID WITH GAIT BELT, ROLLING WALKER, AND STANDBY ASSIST. USING URINAL SINCE MIDNIGHT. HOPING TO GO HOME TODAY
--- NOTE | 2020-08-23 07:19 | NUR ---
Nutrition follow-up: Pt continues on rehab unit, eating well (90-100% of meals recorded). No new wt noted since 08/08/20, however wt prior appear stable. Sacral redness noted but no pressure ulcers present. Abdomen is soft, with last BM noted 08/21.Pt remains at low nutrition risk.
[2020-08-23 07:53] VITALS: BP 119/73
[2020-08-23] MEDS ORDERED: FLOMAX0.4 MG PO (08:12)
[2020-08-23] MEDS ORDERED: CARDIZEM CD 18180 M3 PO (08:12)
[2020-08-23] MEDS ORDERED: PROVENTIL HFA6.7 G1 INH (08:12)
[2020-08-23] MEDS ORDERED: MELATONIN5 M1 PO (08:12)
[2020-08-23] MEDS ORDERED: TYLENOL325 MG PO (08:12)
[2020-08-23] MEDS ORDERED: EUTHYROX100 MCG PO (08:12)
--- NOTE | 2020-08-23 09:32 | NUR ---
ASSUMED CARE AT 0700. PATIENT IS ALERT AND ORIENTED X4. PATIENT GALINDO'S, AIRLINE STATION AGENT ARE EQUAL. LUNGS ARE CLEAR AND DEMINISHED. ABD IS SOFT WITH BSX4. PATIENT VOIDS PER URINAL. PATIENT IS UP WITH SBA TO THE BATHROOM TO VOID JABARI COLORED URINE. UP IN THE W/C FOR MEALS. FALL AND SAFETY PROTOCOLS IN PLACE. DENIES PAIN AT THIS TIME. CONTINUES TO PROGRESS TOWARDS D/C GOALS. PLAN D/C TO HOME LATER TODAY. WILL CONTINUE TO MONITER.
[2020-08-23 10:00] VITALS: BP 119/73
[2020-08-23] MEDS ORDERED: VITAMIN C500 M1 PO (10:21)
[2020-08-23] MEDS ORDERED: ZINC SULFATE220 MG PO (10:21)
[2020-08-23] MEDS ORDERED: VITAMIN D210 MCG PO (10:21)
--- NOTE | 2020-08-23 11:21 | NUR ---
ASSESSMENT: CM REVIEWED CHART AND MET WITH PT. PT IS ALERT AND ORIENTED X4. PT WAS ADMITTED DUE TO LOWER EXTREMITY CELLULITIS AND ON IV ANBX. PTS COVID TEST IS NEGATIVE. PT ADMITS FROM HOME WHERE SHE LIVES WITH HER SON AND WHO LIVES IN THE [place]. PT REPORTS HER HOME IS HANDICAP ACCESSIBLE AND HAS A RAMP TO ENTER. PT REPORTS AMBULATING VIA A MOTOR SCOOTER. SHE ALSO REPORTS HAVING A ROLL IN SHOWER, HAS A SHOWER CHAIR, AND ALSO HAS A CPAP AT HOME. PT REPORTS HX OF USING [facility] IN THE PAST BUT NOT CURRENTLY. PT REPORTS SHE HAS ALSO CAME TO OUTPT INFUSION AT [facility] IN THE PAST. CM DISCUSSED ROLE. PT IS UNSURE OF HER NEEDS AT DISCHARGE AT THIS TIME. CM WILL CONTINUE TO FOLLOW TO ASSIST NEEDED.
[2020-08-23 12:00] VITALS: BP 119/73
--- NOTE | 2020-08-23 12:08 | NUR ---
cm scheduled a new pt appt for dr lopez for sep 06 2020 at 10:00 am. cm contacted security to see if pt's ring was turned it. per security, it was not. pt isnt sure if he wore ring to hospital. michael mcbr[employer] poultry barn manager completed an incindent report.
[2020-08-23 12:16] VITALS: BP 119/73
[2020-08-23 12:35] VITALS: BP 119/73
--- NOTE | 2020-08-23 13:54 | NUR ---
PT DISCHARGING TODAY TO HOME WITH [facility] FAXED DC ORDERS/SUMMARY SPOKE WITH BRADLY IN INTAKE SHE RECEIVED ORDERS AND WAS WONDERING WHO PT'S PCP IS GOING TO BE SINCE HIS HE HAS APPT SCHEDULED FOR 09/06/[address] PIERRE. [facility] WILL SCHEDULE VISITS WITH PT.
--- NOTE | 2020-08-25 12:07 | NUR ---
08/23/20. PATIENT D/C'D TO HOME TODAY. PATIENT LEFT UNIT WITH ALL OF HIS BELONGINGS AND D/C INSTRUCTIONS. PATIENT TRANSFERED FROM W/C TO HIS DAUGHTERS CAR INDEPENDENTLY. PATIENT SEAT BELT APPLIED. PATIENT LEFT WITH DAUGHTER VIA HER CAR IN GOOD CONDITION.
== END 2020-08-23 13:00 | disposition home health service (06) | DRG 91 ==
PROVIDERS: Internal Medicine; Nurse Practitioner; Nurse Practitioner Family; ADMIT Physical Medicine & Rehabilitation; ATTEND Physical Medicine & Rehabilitation
PROC: 05HY33Z Insertion of Infusion Device into Upper Vein, Percutaneous Approach (ICD-10-PCS; principal; 2020-08-08)
DX: G72.81 Critical illness myopathy (principal); G92 Toxic encephalopathy; U07.1 COVID-19; J12.89 Other viral pneumonia; J96.91 Respiratory failure, unspecified with hypoxia; D58.0 Hereditary spherocytosis; R13.10 Dysphagia, unspecified; E11.9 Type 2 diabetes mellitus without complications; I10 Essential (primary) hypertension; D47.3 Essential (hemorrhagic) thrombocythemia; E03.9 Hypothyroidism, unspecified; T38.0X5A Adverse effect of glucocorticoids and synthetic analogues, initial encounter; D72.829 Elevated white blood cell count, unspecified; K59.00 Constipation, unspecified; R53.81 Other malaise; G31.84 Mild cognitive impairment of uncertain or unknown etiology; Z88.0 Allergy status to penicillin; Z91.040 Latex allergy status; Y92.89 Other specified places as the place of occurrence of the external cause; Z79.899 Other long term (current) drug therapy
CPT/HCPCS: 10112

== ENCOUNTER → 2021-07-04 | Outpatient (CLI) | payer OTHER ==
[~2021-07-04] MED LIST changes: +CARDIZEM CD 18180 M3 PO; +FLOMAX0.4 MG PO; +MELATONIN5 M1 PO; +PROVENTIL HFA6.7 G1 INH; +TYLENOL325 MG PO; +VITAMIN C500 M1 PO; +VITAMIN D210 MCG PO; +ZINC SULFATE220 MG PO
== END ==
LOC: SJCVC 14:43
PROVIDERS: ATTEND Internal Medicine Cardiovascular Disease
DX: R94.31 Abnormal electrocardiogram [ECG] [EKG] (principal); R00.8 Other abnormalities of heart beat; I49.3 Ventricular premature depolarization; N40.0 Benign prostatic hyperplasia without lower urinary tract symptoms; Z86.16 Personal history of COVID-19; E03.9 Hypothyroidism, unspecified; I10 Essential (primary) hypertension; Z88.0 Allergy status to penicillin; Z88.8 Allergy status to other drugs, medicaments and biological substances; Z79.899 Other long term (current) drug therapy; Z87.891 Personal history of nicotine dependence; Z72.89 Other problems related to lifestyle

== ENCOUNTER → 2021-07-24 | Outpatient (CLI) | payer OTHER | LOC: SJCVCIMAG 07:16 | PROVIDERS: ATTEND Internal Medicine Cardiovascular Disease | DX: I08.2 Rheumatic disorders of both aortic and tricuspid valves (principal); I10 Essential (primary) hypertension; R00.8 Other abnormalities of heart beat; I49.3 Ventricular premature depolarization; R94.31 Abnormal electrocardiogram [ECG] [EKG]; R06.00 Dyspnea, unspecified; Z87.891 Personal history of nicotine dependence ==

== ENCOUNTER → 2021-08-02 | Outpatient (CLI) | payer OTHER | LOC: SJCVC 13:38 | PROVIDERS: ATTEND Internal Medicine Cardiovascular Disease | DX: R94.31 Abnormal electrocardiogram [ECG] [EKG] (principal); I49.3 Ventricular premature depolarization; I11.9 Hypertensive heart disease without heart failure; I15.9 Secondary hypertension, unspecified; E03.9 Hypothyroidism, unspecified; J96.90 Respiratory failure, unspecified, unspecified whether with hypoxia or hypercapnia; N40.0 Benign prostatic hyperplasia without lower urinary tract symptoms; Z88.0 Allergy status to penicillin; Z88.8 Allergy status to other drugs, medicaments and biological substances; Z79.899 Other long term (current) drug therapy; Z86.16 Personal history of COVID-19; Z72.89 Other problems related to lifestyle; Z87.891 Personal history of nicotine dependence ==

== ENCOUNTER → 2021-08-29 | Outpatient (CLI) | payer OTHER | LOC: SJCVC 11:28 | PROVIDERS: ATTEND Internal Medicine Cardiovascular Disease | DX: R94.31 Abnormal electrocardiogram [ECG] [EKG] (principal); I49.3 Ventricular premature depolarization; I15.9 Secondary hypertension, unspecified; I49.8 Other specified cardiac arrhythmias; E03.9 Hypothyroidism, unspecified; I10 Essential (primary) hypertension; Z88.0 Allergy status to penicillin; Z88.8 Allergy status to other drugs, medicaments and biological substances; Z87.891 Personal history of nicotine dependence; Z72.89 Other problems related to lifestyle; Z86.16 Personal history of COVID-19 ==

== ENCOUNTER 2021-08-30 18:24 | Emergency (ER) | payer OTHER ==
[~2021-08-30] VITALS: Ht 182.9 cm; Wt 77.1 kg
[2021-08-30 21:14] LABS: HEMATOCRIT 34.4 % (42.0-52.0); HEMOGLOBIN 12.3 gm/dL (14.0-18.0); MCH 32.7 pg (26.0-34.0); MCHC 35.7 g/dL (28.0-37.0); MCV 91.5 fL (80.0-100.0); RBC 3.77 mil/uL (4.50-6.00); RDW 17.8 % (10.5-14.5)
[2021-08-30 21:29] LABS: CREATININE 1.2 mg/dL (0.7-1.3); POTASSIUM 4.6 mmol/L (3.5-5.1)
[2021-08-30 21:35] LABS: ALBUMIN 4.3 g/dL (3.4-5.0); TOTAL BILIRUBIN 2.8 mg/dL (0.2-1.0); TOTAL PROTEIN 7.3 g/dL (6.4-8.2)
[2021-08-30 23:40] VITALS: BP 148/62
== END 2021-08-30 23:40 | disposition home or self-care (01) ==
LOC: ER 18:24
PROVIDERS: Nurse Practitioner Family
DX: S51.811A Laceration without foreign body of right forearm, initial encounter (principal); S30.1XXA Contusion of abdominal wall, initial encounter; S20.214A Contusion of middle front wall of thorax, initial encounter; Z79.51 Long term (current) use of inhaled steroids; Z79.891 Long term (current) use of opiate analgesic; Z79.1 Long term (current) use of non-steroidal anti-inflammatories (NSAID); Z79.899 Other long term (current) drug therapy; Z91.040 Latex allergy status; Z88.0 Allergy status to penicillin; V49.3XXA Car occupant (driver) (passenger) injured in unspecified nontraffic accident, initial encounter; Y93.89 Activity, other specified; Y92.89 Other specified places as the place of occurrence of the external cause; Y99.8 Other external cause status